=== PATIENT | female | born 1970 | race Caucasian/White ===

== ENCOUNTER 2016-12-11 08:00 | Outpatient (RCR) | payer OTHER ==
[~2016-12-11 08:00] MED LIST: ABILIFY5 MG PO; ACIPHEX PO; ACIPHEX20 MG PO; AMITRIPTYLINE10 MG PO; AMOXICILLIN 25250 MG PO; ATIVAN 1MG T1 MG/TAB PO; B-12 500 MCG PO; CIPRO 500MG TA500 MG PO; COMPAZINE10 MG PO; CYMBALTA30 MG PO; D H E IJ; DHE SC; INDERAL LA 60MG60 MG; INDOCIN 25MG CA25 MG PO; INDOCIN50 MG PO; KLONOPIN 1MG1 MG PO; LAMICTAL 25MG T25 MG PO; LAMICTAL200 MG PO; LEXAPRO10 MG PO; LEXAPRO20 MG PO; LYRICA75 MG PO; MELATONIN20 MG PO; MELATONIN5 M1 PO; MIGRANAL4 MG/ML SQ; NAMENDA5 MG PO; NAPROXEN250 MG PO; NEURONTIN100 MG PO; NEURONTIN300 MG PO; NEURONTIN300 MG/CAP PO; NORCO 325 MG-51 TAB PO; PERC2.5TAB PO; PERCOCET 325 MG1 TA2 PO; PHENERGAN 25 TA25 MG PO; PHENERGAN50 M1 PO; PHENTERMINE15 MG PO; PROPRANOLOL; PROPRANOLOL60 MG PO; PROTONIX 40MG T40 MG PO; PROTRIPTYLINE PO; ROBAXIN 50500 MG/TAB PO; SEROQUEL50 MG PO; SINGULAIR10 MG PO; TOPROL XL 25MG25 MG PO; TORADOL 10MG TA10 MG PO; ULTRAM ER200 MG PO; VALIUM 5MG T5 MG/TAB PO; VERAPAMIL 440 MG/TAB PO; VIT D PO; VITAMIN B12500 MCG PO; VITAMIN C500 MG PO; VITAMIN D1000 IU PO; Vitamin D PO; WELLBUTRIN 75MG75 MG PO; WELLBUTRIN XL150 MG PO; XANAX 0.5MG0.5 MG PO; ZANTAC 150MG T150 MG PO; ZANTAC 300300 MG PO; ZOFRAN 4MG T4 MG/TAB PO
== END 2016-12-21 | disposition home or self-care (01) ==
LOC: MKS.ESL.PT
DX: H83.8X2 Other specified diseases of left inner ear (principal)

== ENCOUNTER → 2016-12-22 | Outpatient (CLI) | payer OTHER ==
[~2016-12-22] MED LIST changes: +EFFEXOR 3737.5 MG/TA PO; +IMITREX50 MG PO
== END ==
LOC: BHSO 08:53
DX: F31.81 Bipolar II disorder (principal)

== ENCOUNTER 2017-01-15 08:00 | Outpatient (RCR) | payer OTHER ==
[~2017-01-15 08:00] MED LIST changes: -EFFEXOR 3737.5 MG/TA PO; -IMITREX50 MG PO
[2017-02-26] MEDS ORDERED: IMITREX50 MG PO (09:53)
[2017-02-26] MEDS ORDERED: EFFEXOR 3737.5 MG/TA PO (09:54)
== END 2017-03-20 10:21 | disposition home or self-care (01) ==
LOC: MKS.ESL.PT 08:00
DX: H83.8X2 Other specified diseases of left inner ear (principal)

== ENCOUNTER 2017-02-03 09:00 | Outpatient (RCR) | payer OTHER ==
[2016-11-11 08:51] VITALS: BP 144/77; PULSE 102; TEMP 98.4
[2016-11-14 09:22] VITALS: BP 114/78; PULSE 95; TEMP 98.5
[2016-11-17 09:57] VITALS: BP 114/38; PULSE 89
[2016-11-20 09:42] VITALS: BP 140/89; PULSE 88; TEMP 98.5
[2016-11-24 09:25] VITALS: BP 127/76; PULSE 94; TEMP 98
[2016-11-27 09:27] VITALS: BP 134/94; PULSE 101; TEMP 97.9
[2016-12-01 09:40] VITALS: BP 124/79; PULSE 95; TEMP 98.5
[2016-12-04 09:20] VITALS: BP 118/76; PULSE 93; TEMP 98.7
[2016-12-08 10:15] VITALS: BP 135/94; PULSE 108; TEMP 97.6
[2016-12-11 09:53] VITALS: BP 111/76; PULSE 98; TEMP 98.4
[2016-12-16 09:06] VITALS: BP 126/86; PULSE 102; TEMP 98.2
[2016-12-16 10:03] LABS: HEMATOCRIT 39.8 % (37.0-47.0); HEMOGLOBIN 12.6 g/dl (12.5-16.0); MEAN CELL VOLUME 88 fl (80.0-100.0); MEAN CORPUSCULAR HEMOGLOBIN 28 pg (27.0-31.0); MEAN CORPUSCULAR HGB CONC 32 g/dl (33.0-37.0); MEAN PLATELET VOLUME 9.8 fl (7.4-10.4); PLATELET COUNT 241 K/mm3 (130-400); RED BLOOD COUNT 4.55 M/mm3 (4.10-5.30); REDCELL DISTRIBUTION WIDTH-CV 14.4 % (11.5-14.5); WHITE BLOOD COUNT 11.8 K/mm3 (4.8-10.8)
[2016-12-16 10:09] LABS: ADJUSTED CALCIUM 9.2 mg/dL (8.4-10.2); ALBUMIN 3.9 gm/dL (3.5-5.0); BILIRUBIN,TOTAL 0.4 mg/dL (0.0-1.0); CALCIUM 9.1 mg/dL (8.4-10.2); CREATININE, serum 0.67 mg/dL (0.52-1.25); POTASSIUM 4.4 mmol/L (3.4-5.0); TOTAL PROTEIN 6.9 gm/dL (6.4-8.2)
[2016-12-19 08:20] VITALS: BP 119/81; PULSE 96; TEMP 97.1
[2016-12-22 09:45] VITALS: BP 130/92; PULSE 105; TEMP 98.4
[2016-12-26 14:35] VITALS: BP 125/91; PULSE 93; TEMP 97.9
[2016-12-29 10:35] VITALS: BP 125/77; PULSE 100; TEMP 98.2
[2017-01-01 10:55] VITALS: BP 122/96; PULSE 102; TEMP 98.2
[2017-01-05 10:45] VITALS: BP 102/62; PULSE 94; TEMP 98.1
[2017-01-08 10:06] VITALS: BP 129/82; PULSE 99; TEMP 98
[2017-01-12 09:08] VITALS: BP 124/87; PULSE 95; TEMP 98.4
[2017-01-12 09:58] LABS: BASO # 0.1 (0.0-0.2); BASO % 0.7 % (0.0-2.0); EOS # 0.2 (0.0-0.7); EOS % 1.7 % (0-4.0); GRAN # 9.3 (1.4-6.5); GRAN % 65.4 % (42.2-75.2); HEMATOCRIT 41.5 % (37.0-47.0); HEMOGLOBIN 13.5 g/dl (12.5-16.0); LYMPH # 3.9 (1.2-3.4); LYMPH % 27.6 % (20.0-51.0); MEAN CELL VOLUME 86 fl (80.0-100.0); MEAN CORPUSCULAR HEMOGLOBIN 28 pg (27.0-31.0); MEAN CORPUSCULAR HGB CONC 33 g/dl (33.0-37.0); MEAN PLATELET VOLUME 10.4 fl (7.4-10.4); MONO # 0.6 (0.1-0.6); MONO % 4.2 % (1.7-9.3); PLATELET COUNT 258 K/mm3 (130-400); RED BLOOD COUNT 4.81 M/mm3 (4.10-5.30); WHITE BLOOD COUNT 14.2 K/mm3 (4.8-10.8)
[2017-01-12 10:10] LABS: ADJUSTED CALCIUM 9.4 mg/dL (8.4-10.2); ALBUMIN 4.3 gm/dL (3.5-5.0); BILIRUBIN,TOTAL 0.6 mg/dL (0.0-1.0); CALCIUM 9.6 mg/dL (8.4-10.2); CREATININE, serum 0.73 mg/dL (0.52-1.25); POTASSIUM 4.3 mmol/L (3.4-5.0); TOTAL PROTEIN 7.8 gm/dL (6.4-8.2)
[2017-01-15 09:30] VITALS: BP 121/81; PULSE 102; TEMP 98.8
[2017-01-26 11:46] VITALS: BP 108/71; PULSE 84; TEMP 98.4
[2017-01-29 09:15] VITALS: BP 109/70; PULSE 99; TEMP 98.5
[~2017-02-03] VITALS: Ht 167.6 cm; Wt 102.0 kg
[2017-02-03 09:21] VITALS: BP 127/77; PULSE 99; TEMP 97.7
== END 2017-02-04 | disposition home or self-care (01) ==
LOC: EUO
PROVIDERS: Family Medicine
DX: G44.51 Hemicrania continua (principal); Z45.2 Encounter for adjustment and management of vascular access device
CPT/HCPCS: J1200; J1644; J1885; J2550; J3475; J7030; J7040

== ENCOUNTER → 2017-03-16 | Outpatient (CLI) | payer OTHER ==
[~2017-03-16] MED LIST changes: +EFFEXOR 3737.5 MG/TA PO; +IMITREX50 MG PO
== END ==
LOC: BHSO 08:56
DX: F31.74 Bipolar disorder, in full remission, most recent episode manic (principal)

== ENCOUNTER 2017-05-04 09:00 | Outpatient (RCR) | payer OTHER ==
[2017-02-06 09:20] VITALS: BP 120/77; PULSE 94; TEMP 98.5
[2017-02-09 10:25] VITALS: BP 126/78; PULSE 95; TEMP 98.7
[2017-02-09 10:27] LABS: HEMOGLOBIN 13.1 g/dl (12.5-16.0); MEAN CELL VOLUME 87 fl (80.0-100.0); MEAN CORPUSCULAR HEMOGLOBIN 28 pg (27.0-31.0); MEAN CORPUSCULAR HGB CONC 32 g/dl (33.0-37.0); PLATELET COUNT 281 K/mm3 (130-400); RED BLOOD COUNT 4.74 M/mm3 (4.10-5.30); REDCELL DISTRIBUTION WIDTH-CV 13.9 % (11.5-14.5); WHITE BLOOD COUNT 12.9 K/mm3 (4.8-10.8)
[2017-02-09 10:35] LABS: ADJUSTED CALCIUM 9.3 mg/dL (8.4-10.2); ALBUMIN 4.2 gm/dL (3.5-5.0); BILIRUBIN,TOTAL 0.6 mg/dL (0.0-1.0); CALCIUM 9.5 mg/dL (8.4-10.2); CREATININE, serum 0.64 mg/dL (0.52-1.25); POTASSIUM 4.1 mmol/L (3.4-5.0); TOTAL PROTEIN 7.3 gm/dL (6.4-8.2)
[2017-02-12 09:37] VITALS: BP 129/76; PULSE 98; TEMP 99.1
[2017-02-16 09:04] VITALS: BP 117/78; PULSE 101; TEMP 98.4
[2017-02-19 09:35] VITALS: BP 126/87; PULSE 95; TEMP 98.7
[2017-02-23 09:12] VITALS: BP 123/78; PULSE 94; TEMP 98.5
[2017-02-26 11:51] VITALS: BP 123/70; PULSE 97; TEMP 98.7
[2017-03-02 09:45] VITALS: BP 122/78; PULSE 92; TEMP 97.9
[2017-03-05 13:00] VITALS: BP 118/59; PULSE 94; TEMP 98.2
[2017-03-09 09:45] VITALS: BP 116/75; PULSE 95; TEMP 97.6
[2017-03-12 09:30] VITALS: BP 118/72; PULSE 106; TEMP 98.6
[2017-03-12 09:50] LABS: HEMATOCRIT 40.5 % (37.0-47.0); MEAN CELL VOLUME 86 fl (80.0-100.0); MEAN CORPUSCULAR HEMOGLOBIN 28 pg (27.0-31.0); MEAN CORPUSCULAR HGB CONC 32 g/dl (33.0-37.0); MEAN PLATELET VOLUME 10.4 fl (7.4-10.4); PLATELET COUNT 270 K/mm3 (130-400); RED BLOOD COUNT 4.71 M/mm3 (4.10-5.30); REDCELL DISTRIBUTION WIDTH-CV 14.1 % (11.5-14.5); WHITE BLOOD COUNT 10.1 K/mm3 (4.8-10.8)
[2017-03-12 10:16] LABS: ADJUSTED CALCIUM 9.4 mg/dL (8.4-10.2); BILIRUBIN,TOTAL 0.6 mg/dL (0.0-1.0); CALCIUM 9.4 mg/dL (8.4-10.2); CREATININE, serum 0.73 mg/dL (0.52-1.25); POTASSIUM 4.1 mmol/L (3.4-5.0); TOTAL PROTEIN 7.1 gm/dL (6.4-8.2)
[2017-03-16 11:01] VITALS: BP 139/86; PULSE 101; TEMP 98.7
[2017-03-19 09:25] VITALS: BP 118/82; PULSE 91; TEMP 98.5
[2017-03-23 07:30] VITALS: BP 129/75; PULSE 88; TEMP 98.1
[2017-03-26 12:04] VITALS: BP 99/61; PULSE 90; TEMP 98.1
[2017-03-30 09:14] VITALS: BP 147/84; PULSE 90; TEMP 97.7
[2017-04-02 09:20] VITALS: BP 125/94; PULSE 92; TEMP 99.2
[2017-04-07 10:35] VITALS: BP 108/55; PULSE 63; TEMP 97.9
[2017-04-10 09:38] VITALS: BP 127/79; PULSE 82; TEMP 98
[2017-04-13 09:03] VITALS: BP 135/77; PULSE 82; TEMP 97.9
[2017-04-13 09:56] LABS: HEMATOCRIT 38.7 % (37.0-47.0); HEMOGLOBIN 12.3 g/dl (12.5-16.0); MEAN CELL VOLUME 87 fl (80.0-100.0); MEAN CORPUSCULAR HEMOGLOBIN 28 pg (27.0-31.0); MEAN CORPUSCULAR HGB CONC 32 g/dl (33.0-37.0); MEAN PLATELET VOLUME 10.4 fl (7.4-10.4); PLATELET COUNT 257 K/mm3 (130-400); RED BLOOD COUNT 4.44 M/mm3 (4.10-5.30); REDCELL DISTRIBUTION WIDTH-CV 14.6 % (11.5-14.5); WHITE BLOOD COUNT 9.1 K/mm3 (4.8-10.8)
[2017-04-13 10:05] LABS: ADJUSTED CALCIUM 8.9 mg/dL (8.4-10.2); ALBUMIN 3.9 gm/dL (3.5-5.0); BILIRUBIN,TOTAL 0.6 mg/dL (0.0-1.0); CALCIUM 8.8 mg/dL (8.4-10.2); CREATININE, serum 0.64 mg/dL (0.52-1.25); POTASSIUM 4.3 mmol/L (3.4-5.0); TOTAL PROTEIN 6.9 gm/dL (6.4-8.2)
[2017-04-16 09:16] VITALS: BP 112/72; PULSE 84; TEMP 98.3
[2017-04-21 14:17] VITALS: BP 131/82; PULSE 92; TEMP 98.5
[2017-04-24 10:04] VITALS: BP 105/69; PULSE 84; TEMP 98.2
[2017-04-27 09:40] VITALS: BP 110/64; PULSE 92; TEMP 98.8
[2017-04-30 10:45] VITALS: BP 111/69; PULSE 99; TEMP 98.9
[~2017-05-04] VITALS: Ht 167.6 cm; Wt 100.0 kg
[2017-05-04 09:58] VITALS: BP 128/77; PULSE 96; TEMP 98.8
== END 2017-05-07 | disposition still patient (30) ==
LOC: EUO
PROVIDERS: Family Medicine
DX: G44.51 Hemicrania continua (principal)
CPT/HCPCS: J1200; J1644; J1885; J2550; J3475; J7040

== ENCOUNTER → 2017-06-22 | Outpatient (CLI) | payer OTHER | LOC: BHSO 09:06 | DX: F31.73 Bipolar disorder, in partial remission, most recent episode manic (principal) ==

== ENCOUNTER 2017-08-14 09:00 | Outpatient (RCR) | payer OTHER ==
[2017-05-18 11:00] VITALS: BP 122/68; PULSE 81
[2017-05-18 14:16] LABS: MEAN CELL VOLUME 85 fl (80.0-100.0); MEAN CORPUSCULAR HGB CONC 32 g/dl (33.0-37.0); PLATELET COUNT 258 K/mm3 (130-400); RED BLOOD COUNT 4.32 M/mm3 (4.10-5.30); REDCELL DISTRIBUTION WIDTH-CV 13.9 % (11.5-14.5)
[2017-05-18 14:18] LABS: HEMATOCRIT 36.9 % (37.0-47.0); HEMOGLOBIN 11.8 g/dl (12.5-16.0); MEAN CORPUSCULAR HEMOGLOBIN 27 pg (27.0-31.0)
[2017-05-18 14:26] LABS: ALBUMIN 3.6 gm/dL (3.5-5.0); BILIRUBIN,TOTAL 0.5 mg/dL (0.0-1.0); CALCIUM 8.7 mg/dL (8.4-10.2); CREATININE, serum 0.69 mg/dL (0.52-1.25); POTASSIUM 4.2 mmol/L (3.4-5.0); TOTAL PROTEIN 6.5 gm/dL (6.4-8.2)
[2017-05-21 09:39] VITALS: BP 122/79; PULSE 93; TEMP 98.5
[2017-05-28 10:00] VITALS: BP 113/78; PULSE 95; TEMP 98.3
[2017-06-01 09:45] VITALS: BP 119/73; PULSE 93; TEMP 98.5
[2017-06-04 09:39] VITALS: BP 123/83; PULSE 88; TEMP 98.3
[2017-06-08 09:53] VITALS: BP 100/77; PULSE 84
[2017-06-11 09:43] VITALS: BP 113/83; PULSE 85; TEMP 98.3
[2017-06-11 12:07] LABS: MEAN CELL VOLUME 86 fl (80.0-100.0); MEAN CORPUSCULAR HGB CONC 32 g/dl (33.0-37.0); MEAN PLATELET VOLUME 10.1 fl (7.4-10.4); PLATELET COUNT 281 K/mm3 (130-400); RED BLOOD COUNT 4.07 M/mm3 (4.10-5.30); REDCELL DISTRIBUTION WIDTH-CV 13.9 % (11.5-14.5); WHITE BLOOD COUNT 9.2 K/mm3 (4.8-10.8)
[2017-06-11 12:10] LABS: HEMATOCRIT 34.9 % (37.0-47.0); MEAN CORPUSCULAR HEMOGLOBIN 27 pg (27.0-31.0)
[2017-06-11 12:15] LABS: ADJUSTED CALCIUM 9.5 mg/dL (8.4-10.2); ALBUMIN 3.6 gm/dL (3.5-5.0); BILIRUBIN,TOTAL 0.4 mg/dL (0.0-1.0); CALCIUM 9.2 mg/dL (8.4-10.2); CREATININE, serum 0.77 mg/dL (0.52-1.25); POTASSIUM 4.4 mmol/L (3.4-5.0); TOTAL PROTEIN 6.4 gm/dL (6.4-8.2)
[2017-06-18 09:26] VITALS: BP 128/86; PULSE 97; TEMP 98.3
[2017-06-22 10:53] VITALS: BP 104/75; PULSE 88; TEMP 98.3
[2017-06-25 09:30] VITALS: BP 113/79; PULSE 93; TEMP 98.8
[2017-06-29 09:30] VITALS: BP 120/67; PULSE 93; TEMP 97
[2017-07-01 14:06] VITALS: BP 113/69; PULSE 100; TEMP 98.7
[2017-07-06 09:30] VITALS: BP 114/76; PULSE 94; TEMP 98.7
[2017-07-09 09:15] VITALS: BP 116/82; PULSE 106; TEMP 98.3
[2017-07-14 09:49] VITALS: BP 110/75; PULSE 91; TEMP 98.2
[2017-07-17 09:20] VITALS: BP 107/68; PULSE 110; TEMP 98.3
[2017-07-17 11:30] LABS: HEMATOCRIT 37.8 % (37.0-47.0); HEMOGLOBIN 12.3 g/dl (12.5-16.0); MEAN CELL VOLUME 83 fl (80.0-100.0); MEAN CORPUSCULAR HEMOGLOBIN 27 pg (27.0-31.0); MEAN CORPUSCULAR HGB CONC 33 g/dl (33.0-37.0); MEAN PLATELET VOLUME 10.2 fl (7.4-10.4); PLATELET COUNT 245 K/mm3 (130-400); RED BLOOD COUNT 4.53 M/mm3 (4.10-5.30); REDCELL DISTRIBUTION WIDTH-CV 14.4 % (11.5-14.5); WHITE BLOOD COUNT 11.8 K/mm3 (4.8-10.8)
[2017-07-17 11:43] LABS: ADJUSTED CALCIUM 9.1 mg/dL (8.4-10.2); ALBUMIN 3.9 gm/dL (3.5-5.0); BILIRUBIN,TOTAL 0.5 mg/dL (0.0-1.0); CREATININE, serum 0.59 mg/dL (0.52-1.25); POTASSIUM 4.5 mmol/L (3.4-5.0); TOTAL PROTEIN 7.1 gm/dL (6.4-8.2)
[2017-07-20 12:50] VITALS: BP 121/73; PULSE 88; TEMP 97.6
[2017-07-23 09:30] VITALS: BP 133/76; PULSE 101; TEMP 98.8
[2017-07-27 09:30] VITALS: BP 113/77; PULSE 100; TEMP 99.6
[2017-07-30 14:49] VITALS: BP 97/71; PULSE 92; TEMP 98.4
[2017-08-03 09:15] VITALS: BP 101/64; PULSE 90; TEMP 98.2
[2017-08-06 10:11] VITALS: BP 112/72; PULSE 94; TEMP 98.1
[2017-08-11 09:24] LABS: BASO # 0.1 (0.0-0.2); BASO % 0.6 % (0.0-2.0); EOS # 0.2 (0.0-0.7); EOS % 1.7 % (0-4.0); GRAN # 9.4 (1.4-6.5); GRAN % 68.7 % (42.2-75.2); HEMATOCRIT 38.8 % (37.0-47.0); HEMOGLOBIN 12.2 g/dl (12.5-16.0); LYMPH # 3.3 (1.2-3.4); LYMPH % 23.7 % (20.0-51.0); MEAN CELL VOLUME 86 fl (80.0-100.0); MEAN CORPUSCULAR HEMOGLOBIN 27 pg (27.0-31.0); MEAN CORPUSCULAR HGB CONC 31 g/dl (33.0-37.0); MEAN PLATELET VOLUME 9.8 fl (7.4-10.4); MONO # 0.7 (0.1-0.6); MONO % 4.9 % (1.7-9.3); PLATELET COUNT 251 K/mm3 (130-400); REDCELL DISTRIBUTION WIDTH-CV 14.9 % (11.5-14.5); WHITE BLOOD COUNT 13.7 K/mm3 (4.8-10.8)
[2017-08-11 09:35] LABS: ADJUSTED CALCIUM 9.4 mg/dL (8.4-10.2); BILIRUBIN,TOTAL 0.5 mg/dL (0.0-1.0); CALCIUM 9.4 mg/dL (8.4-10.2); CREATININE, serum 0.58 mg/dL (0.52-1.25); POTASSIUM 4.3 mmol/L (3.4-5.0); TOTAL PROTEIN 7.3 gm/dL (6.4-8.2)
[2017-08-11 09:54] VITALS: BP 108/70; PULSE 103; TEMP 98.4
[~2017-08-14] VITALS: Ht 167.6 cm; Wt 105.8 kg
[2017-08-14 10:18] VITALS: BP 119/79; PULSE 98; TEMP 98.4
== END 2017-08-16 ==
LOC: EUO
PROVIDERS: Family Medicine
DX: G44.51 Hemicrania continua (principal); G43.009 Migraine without aura, not intractable, without status migrainosus; Z79.899 Other long term (current) drug therapy
CPT/HCPCS: J1200; J1644; J1885; J2550; J3475; J7040

== ENCOUNTER 2017-09-02 10:34 | Day surgery (SDC) | payer OTHER ==
[~2017-09-02] VITALS: Ht 167.7 cm; Wt 101.7 kg
[2017-09-02] VITALS (11 sets, daily range): BP systolic 100–113; BP diastolic 58–80; PULSE 98–107; TEMP 97.9–98.1
[2017-09-02 11:14] LABS: BASO # 0.1 (0.0-0.2); BASO % 0.7 % (0.0-2.0); EOS # 0.2 (0.0-0.7); EOS % 1.4 % (0-4.0); GRAN # 9.3 (1.4-6.5); GRAN % 69.6 % (42.2-75.2); HEMATOCRIT 37.4 % (37.0-47.0); LYMPH % 22.7 % (20.0-51.0); MEAN CELL VOLUME 85 fl (80.0-100.0); MEAN CORPUSCULAR HEMOGLOBIN 27 pg (27.0-31.0); MEAN CORPUSCULAR HGB CONC 31 g/dl (33.0-37.0); MEAN PLATELET VOLUME 10.1 fl (7.4-10.4); MONO # 0.6 (0.1-0.6); MONO % 4.6 % (1.7-9.3); PLATELET COUNT 258 K/mm3 (130-400); WHITE BLOOD COUNT 13.4 K/mm3 (4.8-10.8)
[2017-09-02 11:24] LABS: HEMOGLOBIN 11.7 g/dl (12.5-16.0)
[2017-09-02 11:24] LABS: INR 1.2 (0.8-3.0); PROTHROMBIN TIME 12.8 SECONDS (9.7-12.8)
== END 2017-09-02 17:21 | disposition home or self-care (01) ==
LOC: COL.CAR 10:34
PROVIDERS: Radiology Diagnostic Radiology
DX: T82.9XXA Unspecified complication of cardiac and vascular prosthetic device, implant and graft, initial encounter (principal)
CPT/HCPCS: C1769; J0690; J1644; J2250; J3010; J7050

== ENCOUNTER → 2017-10-05 | Outpatient (CLI) | payer OTHER | LOC: MC.RAD 11:16 | DX: Z12.31 Encounter for screening mammogram for malignant neoplasm of breast (principal); Z96.89 Presence of other specified functional implants ==

== ENCOUNTER → 2017-10-08 | Outpatient (CLI) | payer OTHER | LOC: BHSO 09:20 | DX: F41.1 Generalized anxiety disorder (principal) ==

== ENCOUNTER 2017-11-06 09:00 | Outpatient (RCR) | payer OTHER ==
[2017-08-17 10:52] VITALS: BP 93/63; PULSE 82; TEMP 98.2
[2017-08-24 09:15] VITALS: BP 134/75; PULSE 86; TEMP 98.1
[2017-08-27 09:52] VITALS: BP 112/78; PULSE 91; TEMP 98.5
[2017-08-31 08:48] VITALS: BP 142/83; PULSE 107; TEMP 97.7
[2017-09-07 10:14] VITALS: BP 100/65; PULSE 87; TEMP 97.6
[2017-09-10 11:09] VITALS: PULSE 89; TEMP 98.6
[2017-09-10 11:34] LABS: ALBUMIN 4.2 gm/dL (3.5-5.0); BILIRUBIN,TOTAL 0.5 mg/dL (0.0-1.0); CALCIUM 9.9 mg/dL (8.4-10.2); CREATININE, serum 0.74 mg/dL (0.52-1.25); POTASSIUM 4.5 mmol/L (3.4-5.0); TOTAL PROTEIN 7.7 gm/dL (6.4-8.2)
[2017-09-14 12:15] VITALS: BP 112/75; PULSE 97; TEMP 98.5
[2017-09-17 09:33] VITALS: BP 113/90; PULSE 92; TEMP 98.9
[2017-09-21 09:15] VITALS: BP 116/89; PULSE 100; TEMP 98.4
[2017-09-24 11:09] VITALS: BP 124/77; PULSE 94; TEMP 98.1
[2017-09-28 09:30] VITALS: BP 119/76; PULSE 101; TEMP 98.5
[2017-10-02 13:23] VITALS: BP 119/72; PULSE 108; TEMP 99.5
[2017-10-05 10:03] VITALS: BP 119/71; PULSE 102; TEMP 98.9
[2017-10-08 10:58] VITALS: BP 126/90; PULSE 114; TEMP 98.3
[2017-10-12 09:40] VITALS: BP 116/73; PULSE 92; TEMP 98.8
[2017-10-12 09:51] LABS: MEAN CELL VOLUME 84 fl (80.0-100.0); MEAN CORPUSCULAR HEMOGLOBIN 26 pg (27.0-31.0); MEAN CORPUSCULAR HGB CONC 31 g/dl (33.0-37.0); MEAN PLATELET VOLUME 10.3 fl (7.4-10.4); PLATELET COUNT 272 K/mm3 (130-400); RED BLOOD COUNT 4.54 M/mm3 (4.10-5.30); REDCELL DISTRIBUTION WIDTH-CV 14.6 % (11.5-14.5)
[2017-10-12 09:53] LABS: HEMOGLOBIN 11.9 g/dl (12.5-16.0)
[2017-10-12 10:09] LABS: ALBUMIN 4.1 gm/dL (3.5-5.0); BILIRUBIN,TOTAL 0.4 mg/dL (0.0-1.0); CALCIUM 9.6 mg/dL (8.4-10.2); CREATININE, serum 0.66 mg/dL (0.52-1.25); POTASSIUM 4.1 mmol/L (3.4-5.0); TOTAL PROTEIN 7.2 gm/dL (6.4-8.2)
[2017-10-19 09:10] VITALS: BP 136/93; PULSE 95; TEMP 98
[2017-10-26 09:00] VITALS: BP 131/80; PULSE 95; TEMP 98
[2017-10-29 10:39] VITALS: BP 126/85; PULSE 87; TEMP 98
[2017-11-03 10:07] VITALS: BP 114/83; PULSE 103; TEMP 98.6
[~2017-11-06] VITALS: Ht 167.6 cm; Wt 103.6 kg
[2017-11-06 10:29] VITALS: BP 127/90; PULSE 95; TEMP 98.4
[2017-11-10] MEDS ORDERED: ULTRAM 50MG TAB50 MG PO (09:10)
== END 2017-11-06 11:26 | disposition home or self-care (01) ==
LOC: EUO 09:00
PROVIDERS: Family Medicine
DX: Z45.2 Encounter for adjustment and management of vascular access device (principal); G44.51 Hemicrania continua; Z95.9 Presence of cardiac and vascular implant and graft, unspecified; Z96.9 Presence of functional implant, unspecified
CPT/HCPCS: J1200; J1644; J2550; J3475; J7040; Q9967

== ENCOUNTER → 2017-12-07 | Outpatient (CLI) | payer OTHER ==
[~2017-12-07] MED LIST changes: +ULTRAM 50MG TAB50 MG PO
== END ==
LOC: BHSO 09:47
DX: F41.1 Generalized anxiety disorder (principal)
CPT/HCPCS: G0463

== ENCOUNTER 2018-02-05 14:00 | Outpatient (RCR) | payer OTHER ==
[2017-11-10 09:35] VITALS: BP 117/56; PULSE 66; TEMP 97.8
[2017-11-10 09:37] LABS: MEAN CELL VOLUME 84 fl (80.0-100.0); MEAN CORPUSCULAR HGB CONC 31 g/dl (33.0-37.0); MEAN PLATELET VOLUME 10.2 fl (7.4-10.4); PLATELET COUNT 262 K/mm3 (130-400); RED BLOOD COUNT 4.39 M/mm3 (4.10-5.30)
[2017-11-10 09:41] LABS: HEMATOCRIT 36.8 % (37.0-47.0); HEMOGLOBIN 11.5 g/dl (12.5-16.0); MEAN CORPUSCULAR HEMOGLOBIN 26 pg (27.0-31.0)
[2017-11-10 09:47] LABS: ALBUMIN 4.2 gm/dL (3.5-5.0); BILIRUBIN,TOTAL 0.4 mg/dL (0.0-1.0); CALCIUM 9.2 mg/dL (8.4-10.2); CREATININE, serum 0.73 mg/dL (0.52-1.25); POTASSIUM 3.8 mmol/L (3.4-5.0); TOTAL PROTEIN 7.3 gm/dL (6.4-8.2)
[2017-11-12 09:15] VITALS: BP 124/73; PULSE 94; TEMP 98.8
[2017-11-16 09:24] VITALS: BP 131/82; PULSE 93; TEMP 98.1
[2017-11-20 12:50] VITALS: BP 115/79; PULSE 98; TEMP 98.6
[2017-11-24 09:15] VITALS: BP 111/86; PULSE 98; TEMP 98.3
[2017-11-26 08:40] VITALS: BP 119/75; PULSE 95; TEMP 98.2
[2017-11-30 09:27] VITALS: BP 119/89; PULSE 97; TEMP 98.5
[2017-12-03 10:06] VITALS: BP 122/71; PULSE 92; TEMP 98.5
[2017-12-07 13:37] VITALS: BP 116/73; PULSE 96; TEMP 99.1
[2017-12-10 09:25] LABS: HEMATOCRIT 39.7 % (37.0-47.0); HEMOGLOBIN 12.3 g/dl (12.5-16.0); MEAN CELL VOLUME 83 fl (80.0-100.0); MEAN CORPUSCULAR HEMOGLOBIN 26 pg (27.0-31.0); MEAN CORPUSCULAR HGB CONC 31 g/dl (33.0-37.0); PLATELET COUNT 285 K/mm3 (130-400); RED BLOOD COUNT 4.77 M/mm3 (4.10-5.30); REDCELL DISTRIBUTION WIDTH-CV 15.1 % (11.5-14.5)
[2017-12-10 09:29] LABS: ALBUMIN 4.3 gm/dL (3.5-5.0); BILIRUBIN,TOTAL 0.3 mg/dL (0.0-1.0); CALCIUM 9.8 mg/dL (8.4-10.2); CREATININE, serum 0.68 mg/dL (0.52-1.25); POTASSIUM 4.3 mmol/L (3.4-5.0); TOTAL PROTEIN 7.4 gm/dL (6.4-8.2)
[2017-12-10 09:35] VITALS: BP 137/84; PULSE 93; TEMP 97.8
[2017-12-14 09:40] VITALS: BP 115/82; PULSE 100; TEMP 98
[2017-12-17 10:03] VITALS: BP 105/77; PULSE 86; TEMP 97.9
[2017-12-21 09:10] VITALS: BP 114/83; PULSE 89; TEMP 97.8
[2017-12-24 09:12] VITALS: BP 125/84; PULSE 100; TEMP 98.1
[2017-12-24 09:40] LABS: HEMATOCRIT 39.6 % (37.0-47.0); HEMOGLOBIN 12.4 g/dl (12.5-16.0); MEAN CELL VOLUME 82 fl (80.0-100.0); MEAN CORPUSCULAR HEMOGLOBIN 26 pg (27.0-31.0); MEAN CORPUSCULAR HGB CONC 31 g/dl (33.0-37.0); PLATELET COUNT 245 K/mm3 (130-400); RED BLOOD COUNT 4.82 M/mm3 (4.10-5.30); REDCELL DISTRIBUTION WIDTH-CV 15.3 % (11.5-14.5)
[2017-12-24 09:51] LABS: ALBUMIN 4.4 gm/dL (3.5-5.0); BILIRUBIN,TOTAL 0.4 mg/dL (0.0-1.0); CALCIUM 9.7 mg/dL (8.4-10.2); CREATININE, serum 0.61 mg/dL (0.52-1.25); POTASSIUM 4.2 mmol/L (3.4-5.0); TOTAL PROTEIN 7.6 gm/dL (6.4-8.2)
[2017-12-28 09:00] VITALS: BP 126/81; PULSE 88; TEMP 98
[2018-01-04 10:45] VITALS: BP 119/72; PULSE 88; TEMP 98.3
[2018-01-07 09:36] VITALS: BP 110/68; PULSE 84; TEMP 98
[2018-01-07 11:15] LABS: MEAN CELL VOLUME 82 fl (80.0-100.0); MEAN CORPUSCULAR HGB CONC 31 g/dl (33.0-37.0); PLATELET COUNT 267 K/mm3 (130-400); RED BLOOD COUNT 4.47 M/mm3 (4.10-5.30); REDCELL DISTRIBUTION WIDTH-CV 15.1 % (11.5-14.5)
[2018-01-07 11:18] LABS: HEMATOCRIT 36.6 % (37.0-47.0); HEMOGLOBIN 11.5 g/dl (12.5-16.0); MEAN CORPUSCULAR HEMOGLOBIN 26 pg (27.0-31.0)
[2018-01-07 11:25] LABS: ALBUMIN 3.8 gm/dL (3.5-5.0); BILIRUBIN,TOTAL 0.3 mg/dL (0.0-1.0); CALCIUM 8.5 mg/dL (8.4-10.2); CREATININE, serum 0.64 mg/dL (0.52-1.25); TOTAL PROTEIN 6.7 gm/dL (6.4-8.2)
[2018-01-11 09:32] VITALS: BP 110/70; PULSE 77; TEMP 98.4
[2018-01-14 08:55] VITALS: BP 135/82; PULSE 100; TEMP 98.6
[2018-01-18 08:39] VITALS: BP 118/85; PULSE 102; TEMP 99
[2018-01-21 08:28] LABS: HEMATOCRIT 38.3 % (37.0-47.0); MEAN CELL VOLUME 82 fl (80.0-100.0); MEAN CORPUSCULAR HEMOGLOBIN 26 pg (27.0-31.0); MEAN CORPUSCULAR HGB CONC 31 g/dl (33.0-37.0); MEAN PLATELET VOLUME 10.2 fl (7.4-10.4); PLATELET COUNT 233 K/mm3 (130-400); RED BLOOD COUNT 4.68 M/mm3 (4.10-5.30); REDCELL DISTRIBUTION WIDTH-CV 15.6 % (11.5-14.5)
[2018-01-21 08:41] LABS: ALBUMIN 4.1 gm/dL (3.5-5.0); BILIRUBIN,TOTAL 0.3 mg/dL (0.0-1.0); CALCIUM 9.1 mg/dL (8.4-10.2); CREATININE, serum 0.62 mg/dL (0.52-1.25); POTASSIUM 4.1 mmol/L (3.4-5.0); TOTAL PROTEIN 7.2 gm/dL (6.4-8.2)
[2018-01-21 08:52] VITALS: BP 99/74; PULSE 95; TEMP 98.5
[2018-01-25 08:45] VITALS: BP 110/74; PULSE 105; TEMP 98.2
[2018-01-28 13:50] VITALS: BP 125/74; PULSE 101; TEMP 98.9
[2018-02-02 09:53] VITALS: BP 114/79; PULSE 93; TEMP 98
[~2018-02-05] VITALS: Ht 167.6 cm; Wt 95.5 kg
[2018-02-05 14:00] VITALS: BP 120/80; PULSE 96; TEMP 98
[2018-02-05 15:37] LABS: ALBUMIN 3.8 gm/dL (3.5-5.0); BILIRUBIN,TOTAL 0.4 mg/dL (0.0-1.0); CALCIUM 9.2 mg/dL (8.4-10.2); CREATININE, serum 0.67 mg/dL (0.52-1.25); POTASSIUM 4.1 mmol/L (3.4-5.0); TOTAL PROTEIN 7.2 gm/dL (6.4-8.2)
[2018-02-05 17:43] LABS: HEMATOCRIT 38.5 % (37.0-47.0); MEAN CELL VOLUME 82 fl (80.0-100.0); MEAN CORPUSCULAR HEMOGLOBIN 25 pg (27.0-31.0); MEAN CORPUSCULAR HGB CONC 31 g/dl (33.0-37.0); MEAN PLATELET VOLUME 10.9 fl (7.4-10.4); PLATELET COUNT 285 K/mm3 (130-400); RED BLOOD COUNT 4.71 M/mm3 (4.10-5.30); REDCELL DISTRIBUTION WIDTH-CV 15.1 % (11.5-14.5)
[2018-02-05 17:46] LABS: HEMOGLOBIN 11.8 g/dl (12.5-16.0)
== END 2018-02-08 ==
LOC: EUO
PROVIDERS: Family Medicine
DX: G44.51 Hemicrania continua (principal); Z79.899 Other long term (current) drug therapy
CPT/HCPCS: J1200; J1644; J2550; J3475; J7040

== ENCOUNTER 2018-02-26 09:00 | Outpatient (RCR) | payer OTHER ==
[2018-03-11] MEDS ORDERED: ADVIL200 MG PO (09:30)
[2018-03-28] MEDS ORDERED: ZOFRAN 4MG T4 MG/TAB PO (11:23)
[2018-03-28] MEDS ORDERED: CEPHALEXIN500 M1 PO (11:35)
== END 2018-04-26 | disposition home or self-care (01) ==
LOC: MKS.ESL.PT
DX: S93.401D Sprain of unspecified ligament of right ankle, subsequent encounter (principal)

== ENCOUNTER → 2018-03-01 | Outpatient (CLI) | payer OTHER | LOC: BHSO 08:01 | DX: F31.81 Bipolar II disorder (principal) | CPT/HCPCS: G0463 ==

== ENCOUNTER → 2018-05-10 | Outpatient (CLI) | payer OTHER ==
[~2018-05-10] MED LIST changes: +ADVIL200 MG PO; +CEPHALEXIN500 M1 PO
== END ==
LOC: BHSO 07:56
DX: F31.81 Bipolar II disorder (principal)
CPT/HCPCS: G0463

== ENCOUNTER → 2018-05-10 | Outpatient (RCR) | payer OTHER ==
[2018-02-09 09:45] VITALS: BP 114/76; PULSE 94; TEMP 98.4
[2018-02-12 13:25] VITALS: BP 124/80; PULSE 94; TEMP 98.2
[2018-02-16 09:32] VITALS: BP 132/88; PULSE 103; TEMP 98.8
[2018-02-23 12:30] VITALS: BP 111/79; PULSE 88; TEMP 98.6
[2018-02-23 12:47] LABS: HEMATOCRIT 37.3 % (37.0-47.0); MEAN CELL VOLUME 83 fl (80.0-100.0); MEAN CORPUSCULAR HEMOGLOBIN 26 pg (27.0-31.0); MEAN CORPUSCULAR HGB CONC 31 g/dl (33.0-37.0); PLATELET COUNT 241 K/mm3 (130-400); RED BLOOD COUNT 4.49 M/mm3 (4.10-5.30); REDCELL DISTRIBUTION WIDTH-CV 15.8 % (11.5-14.5)
[2018-02-23 12:51] LABS: HEMOGLOBIN 11.5 g/dl (12.5-16.0)
[2018-02-23 12:56] LABS: ALBUMIN 3.7 gm/dL (3.5-5.0); BILIRUBIN,TOTAL 0.4 mg/dL (0.0-1.0); CALCIUM 8.7 mg/dL (8.4-10.2); CREATININE, serum 0.53 mg/dL (0.52-1.25); POTASSIUM 3.9 mmol/L (3.4-5.0); TOTAL PROTEIN 7.2 gm/dL (6.4-8.2)
[2018-02-26 11:35] VITALS: BP 131/76; PULSE 95; TEMP 97.5
[2018-03-04 09:23] VITALS: BP 121/72; PULSE 94; TEMP 98.3
[2018-03-08 09:37] VITALS: BP 116/69; PULSE 96; TEMP 98.9
[2018-03-11 09:15] VITALS: BP 118/76; PULSE 98; TEMP 98.4
[2018-03-11 09:39] LABS: HEMOGLOBIN 11.9 g/dl (12.5-16.0); MEAN CELL VOLUME 81 fl (80.0-100.0); MEAN CORPUSCULAR HEMOGLOBIN 25 pg (27.0-31.0); MEAN CORPUSCULAR HGB CONC 31 g/dl (33.0-37.0); MEAN PLATELET VOLUME 10.1 fl (7.4-10.4); PLATELET COUNT 245 K/mm3 (130-400); RED BLOOD COUNT 4.68 M/mm3 (4.10-5.30); REDCELL DISTRIBUTION WIDTH-CV 15.6 % (11.5-14.5)
[2018-03-11 09:51] LABS: ALBUMIN 3.8 gm/dL (3.5-5.0); BILIRUBIN,TOTAL 0.5 mg/dL (0.0-1.0); CALCIUM 8.8 mg/dL (8.4-10.2); CREATININE, serum 0.69 mg/dL (0.52-1.25); TOTAL PROTEIN 7.4 gm/dL (6.4-8.2)
[2018-03-15 08:39] VITALS: BP 119/76; PULSE 95; TEMP 99.3
[2018-03-18 09:21] VITALS: BP 117/81; PULSE 105; TEMP 98.7
[2018-03-22 09:21] VITALS: BP 116/76; PULSE 99; TEMP 98.3
[2018-03-25 09:30] LABS: HEMATOCRIT 38.7 % (37.0-47.0); HEMOGLOBIN 12.1 g/dl (12.5-16.0); MEAN CELL VOLUME 81 fl (80.0-100.0); MEAN CORPUSCULAR HEMOGLOBIN 25 pg (27.0-31.0); MEAN CORPUSCULAR HGB CONC 31 g/dl (33.0-37.0); MEAN PLATELET VOLUME 10.5 fl (7.4-10.4); PLATELET COUNT 264 K/mm3 (130-400); RED BLOOD COUNT 4.78 M/mm3 (4.10-5.30); REDCELL DISTRIBUTION WIDTH-CV 15.8 % (11.5-14.5)
[2018-03-25 09:37] VITALS: BP 107/83; PULSE 90; TEMP 97.7
[2018-03-25 09:40] LABS: ALBUMIN 4.1 gm/dL (3.5-5.0); BILIRUBIN,TOTAL 0.5 mg/dL (0.0-1.0); CALCIUM 9.4 mg/dL (8.4-10.2); CREATININE, serum 0.69 mg/dL (0.52-1.25); POTASSIUM 4.7 mmol/L (3.4-5.0); TOTAL PROTEIN 8.1 gm/dL (6.4-8.2)
[2018-03-29 09:42] VITALS: BP 111/72; PULSE 88; TEMP 98.4
[2018-04-01 09:47] VITALS: BP 115/80; PULSE 89; TEMP 97.9
[2018-04-06 09:10] VITALS: BP 107/70; PULSE 88; TEMP 99.3
[2018-04-06 09:26] LABS: MEAN CELL VOLUME 80 fl (80.0-100.0); MEAN CORPUSCULAR HEMOGLOBIN 25 pg (27.0-31.0); MEAN CORPUSCULAR HGB CONC 32 g/dl (33.0-37.0); MEAN PLATELET VOLUME 10.1 fl (7.4-10.4); PLATELET COUNT 278 K/mm3 (130-400); RED BLOOD COUNT 4.75 M/mm3 (4.10-5.30); REDCELL DISTRIBUTION WIDTH-CV 15.3 % (11.5-14.5)
[2018-04-06 09:44] LABS: ALBUMIN 3.9 gm/dL (3.5-5.0); BILIRUBIN,TOTAL 0.6 mg/dL (0.0-1.0); CALCIUM 9.6 mg/dL (8.4-10.2); CREATININE, serum 0.62 mg/dL (0.52-1.25); POTASSIUM 4.3 mmol/L (3.4-5.0); TOTAL PROTEIN 7.8 gm/dL (6.4-8.2)
[2018-04-09 14:31] VITALS: BP 110/74; PULSE 83; TEMP 98
[2018-04-12 09:00] VITALS: BP 120/78; PULSE 66; TEMP 98
[2018-04-15 09:32] VITALS: BP 107/66; PULSE 87; TEMP 98.1
[2018-04-19 08:46] VITALS: BP 120/74; PULSE 90; TEMP 98.3
[2018-04-19 10:00] LABS: HEMOGLOBIN 10.6 g/dl (12.5-16.0); MEAN CELL VOLUME 80 fl (80.0-100.0); MEAN CORPUSCULAR HEMOGLOBIN 25 pg (27.0-31.0); MEAN CORPUSCULAR HGB CONC 31 g/dl (33.0-37.0); MEAN PLATELET VOLUME 10.5 fl (7.4-10.4); PLATELET COUNT 303 K/mm3 (130-400); RED BLOOD COUNT 4.25 M/mm3 (4.10-5.30); REDCELL DISTRIBUTION WIDTH-CV 15.3 % (11.5-14.5)
[2018-04-19 10:10] LABS: ALBUMIN 3.7 gm/dL (3.5-5.0); BILIRUBIN,TOTAL 0.5 mg/dL (0.0-1.0); CALCIUM 9.3 mg/dL (8.4-10.2); CREATININE, serum 0.59 mg/dL (0.52-1.25); POTASSIUM 4.1 mmol/L (3.4-5.0); TOTAL PROTEIN 7.1 gm/dL (6.4-8.2)
[2018-04-22 09:45] VITALS: BP 127/84; PULSE 96; TEMP 98.1
[2018-04-26 10:05] VITALS: BP 118/73; PULSE 90; TEMP 98
[2018-04-29 09:00] VITALS: BP 112/68; PULSE 98; TEMP 98
[2018-05-03 09:17] VITALS: BP 111/88; PULSE 97; TEMP 98.7
[2018-05-03 10:02] LABS: HEMATOCRIT 40.2 % (37.0-47.0); HEMOGLOBIN 12.3 g/dl (12.5-16.0); MEAN CELL VOLUME 79 fl (80.0-100.0); MEAN CORPUSCULAR HEMOGLOBIN 24 pg (27.0-31.0); MEAN CORPUSCULAR HGB CONC 31 g/dl (33.0-37.0); MEAN PLATELET VOLUME 10.4 fl (7.4-10.4); PLATELET COUNT 267 K/mm3 (130-400); RED BLOOD COUNT 5.11 M/mm3 (4.10-5.30); REDCELL DISTRIBUTION WIDTH-CV 15.1 % (11.5-14.5)
[2018-05-03 10:06] LABS: ALBUMIN 4.4 gm/dL (3.5-5.0); BILIRUBIN,TOTAL 0.5 mg/dL (0.0-1.0); CALCIUM 9.8 mg/dL (8.4-10.2); CREATININE, serum 0.67 mg/dL (0.52-1.25); POTASSIUM 4.2 mmol/L (3.4-5.0); TOTAL PROTEIN 8.1 gm/dL (6.4-8.2)
[2018-05-06 13:27] VITALS: BP 125/79; PULSE 100; TEMP 99.2
[~2018-05-10] VITALS: Ht 167.6 cm; Wt 105.7 kg
[2018-05-10 09:17] VITALS: BP 117/75; PULSE 87; TEMP 98.1
== END | disposition home or self-care (01) ==
LOC: EUO
PROVIDERS: Family Medicine
DX: G44.51 Hemicrania continua (principal); Z45.2 Encounter for adjustment and management of vascular access device; Z95.828 Presence of other vascular implants and grafts
CPT/HCPCS: J1200; J1644; J1885; J2550; J3475; J7040

== ENCOUNTER 2018-07-19 08:00 | Outpatient (RCR) | payer OTHER ==
[2018-07-01 15:51] VITALS: BP 153/83; PULSE 102; TEMP 99.1
[2018-08-03] MEDS ORDERED: AIMOVIG AU70 MG/1 ML SQ (18:50)
== END 2018-08-03 14:00 | disposition home or self-care (01) ==
LOC: WSPT 08:00
DX: G44.51 Hemicrania continua (principal); G44.84 Primary exertional headache

== ENCOUNTER → 2018-09-16 | Outpatient (CLI) | payer OTHER ==
[~2018-09-16] VITALS: Ht 167.6 cm; Wt 104.1 kg
[~2018-09-16] MED LIST changes: +AIMOVIG AU70 MG/1 ML SQ; +BENADRYL 50M50 MG/ML IV; +DEXTROSE IV; +FLEXERIL 1010 MG/TAB PO; +MAGNE IV; +PHENERGAN25 MG/ML IV
[2018-09-16 07:48] VITALS: BP 108/70; PULSE 100
== END ==
LOC: LIGHT 07:26
DX: G47.33 Obstructive sleep apnea (adult) (pediatric) (principal); I10 Essential (primary) hypertension; E78.5 Hyperlipidemia, unspecified; E66.9 Obesity, unspecified; Z68.37 Body mass index [BMI] 37.0-37.9, adult; Z71.3 Dietary counseling and surveillance
CPT/HCPCS: G0463

== ENCOUNTER → 2018-09-24 | Outpatient (CLI) | payer OTHER | LOC: BHSO 15:02 | DX: F31.81 Bipolar II disorder (principal) | CPT/HCPCS: G0463 ==

== ENCOUNTER → 2018-10-11 | Outpatient (CLI) | payer OTHER | LOC: LIGHT 13:00 | DX: G47.33 Obstructive sleep apnea (adult) (pediatric) (principal); I10 Essential (primary) hypertension; E78.5 Hyperlipidemia, unspecified; E66.9 Obesity, unspecified; Z68.37 Body mass index [BMI] 37.0-37.9, adult; Z71.3 Dietary counseling and surveillance ==

== ENCOUNTER → 2018-10-14 | Outpatient (CLI) | payer OTHER ==
[~2018-10-14] VITALS: Ht 167.6 cm; Wt 105.2 kg
[2018-10-14 13:25] VITALS: BP 130/90; PULSE 84
== END ==
LOC: LIGHT 13:11
DX: G47.33 Obstructive sleep apnea (adult) (pediatric) (principal); I10 Essential (primary) hypertension; E78.5 Hyperlipidemia, unspecified; E66.9 Obesity, unspecified; Z68.37 Body mass index [BMI] 37.0-37.9, adult; Z71.3 Dietary counseling and surveillance
CPT/HCPCS: G0463

== ENCOUNTER 2018-11-08 15:00 | Outpatient (RCR) | payer OTHER ==
[2018-08-16 15:48] VITALS: BP 120/88; PULSE 90; TEMP 98.8
[2018-08-19 13:53] VITALS: BP 131/72; PULSE 89; TEMP 98.3
[2018-08-25 14:31] LABS: MEAN CELL VOLUME 80 fl (80.0-100.0); MEAN CORPUSCULAR HGB CONC 30 g/dl (33.0-37.0); MEAN PLATELET VOLUME 10.4 fl (7.4-10.4); PLATELET COUNT 170 K/mm3 (130-400); RED BLOOD COUNT 2.94 M/mm3 (4.10-5.30); REDCELL DISTRIBUTION WIDTH-CV 15.4 % (11.5-14.5)
[2018-08-25 14:36] LABS: HEMATOCRIT 23.5 % (37.0-47.0); HEMOGLOBIN 7.1 g/dl (12.5-16.0); MEAN CORPUSCULAR HEMOGLOBIN 24 pg (27.0-31.0)
[2018-08-25 14:37] LABS: ALBUMIN 2.9 gm/dL (3.5-5.0); BILIRUBIN,TOTAL 0.2 mg/dL (0.0-1.0); CALCIUM 6.8 mg/dL (8.4-10.2); CREATININE, serum 0.48 mg/dL (0.52-1.25); POTASSIUM 3.1 mmol/L (3.4-5.0); TOTAL PROTEIN 5.6 gm/dL (6.4-8.2)
[2018-08-25 14:51] VITALS: BP 131/70; PULSE 90; TEMP 98.7
--- NOTE | 2018-08-26 11:58 | NUR ---
Patient did not show this am for redraw of labs.This nurse called pt and she reported she overslept and was having labs redrawn at office.
[2018-08-27 13:20] VITALS: BP 126/71; PULSE 104; TEMP 98.7
[2018-08-31 17:38] VITALS: BP 117/65; PULSE 87; TEMP 98.7
[2018-09-02 14:52] VITALS: BP 125/70; PULSE 87; TEMP 97.2
[2018-09-06 16:15] VITALS: BP 123/66; PULSE 82; TEMP 97.6
[2018-09-06 17:24] LABS: HEMOGLOBIN 10.8 g/dl (12.5-16.0); MEAN CELL VOLUME 78 fl (80.0-100.0); MEAN CORPUSCULAR HEMOGLOBIN 24 pg (27.0-31.0); MEAN CORPUSCULAR HGB CONC 30 g/dl (33.0-37.0); MEAN PLATELET VOLUME 9.8 fl (7.4-10.4); PLATELET COUNT 242 K/mm3 (130-400); RED BLOOD COUNT 4.58 M/mm3 (4.10-5.30); REDCELL DISTRIBUTION WIDTH-CV 15.4 % (11.5-14.5)
[2018-09-06 17:25] LABS: HEMATOCRIT 35.8 % (37.0-47.0)
[2018-09-06 17:35] LABS: ALBUMIN 3.8 gm/dL (3.5-5.0); BILIRUBIN,TOTAL 0.3 mg/dL (0.0-1.0); CALCIUM 8.8 mg/dL (8.4-10.2); CREATININE, serum 0.69 mg/dL (0.52-1.25); POTASSIUM 4.2 mmol/L (3.4-5.0); TOTAL PROTEIN 6.7 gm/dL (6.4-8.2)
[2018-09-09 16:28] VITALS: BP 117/77; PULSE 83; TEMP 98.3
[2018-09-13 15:43] VITALS: BP 142/82; PULSE 88; TEMP 98.4
[2018-09-16 10:10] VITALS: BP 113/73; PULSE 84; TEMP 98.2
[2018-09-20 14:35] LABS: BASO # 0.1 (0.0-0.2); BASO % 0.9 % (0.0-2.0); EOS # 0.4 (0.0-0.7); EOS % 3.1 % (0-4.0); GRAN # 6.4 (1.4-6.5); GRAN % 54.9 % (42.2-75.2); HEMATOCRIT 37.8 % (37.0-47.0); HEMOGLOBIN 11.5 g/dl (12.5-16.0); LYMPH # 4.1 (1.2-3.4); LYMPH % 35.1 % (20.0-51.0); MEAN CELL VOLUME 77 fl (80.0-100.0); MEAN CORPUSCULAR HEMOGLOBIN 24 pg (27.0-31.0); MEAN CORPUSCULAR HGB CONC 30 g/dl (33.0-37.0); MEAN PLATELET VOLUME 10.2 fl (7.4-10.4); MONO # 0.7 (0.1-0.6); MONO % 5.6 % (1.7-9.3); PLATELET COUNT 284 K/mm3 (130-400); REDCELL DISTRIBUTION WIDTH-CV 15.1 % (11.5-14.5)
[2018-09-20 14:49] LABS: ALBUMIN 3.9 gm/dL (3.5-5.0); BILIRUBIN,TOTAL 0.2 mg/dL (0.0-1.0); CALCIUM 8.9 mg/dL (8.4-10.2); CREATININE, serum 0.65 mg/dL (0.52-1.25); TOTAL PROTEIN 7.1 gm/dL (6.4-8.2)
[2018-09-20 14:56] VITALS: BP 129/82; PULSE 89; TEMP 98.7
[2018-09-24 15:40] VITALS: BP 119/77; PULSE 84; TEMP 99.1
[2018-09-27 18:51] VITALS: BP 135/82; PULSE 89; TEMP 98.7
[2018-10-01 10:31] VITALS: BP 118/62; PULSE 88; TEMP 97.9
[2018-10-06 08:09] LABS: HEMATOCRIT 39.3 % (37.0-47.0); HEMOGLOBIN 12.2 g/dl (12.5-16.0); MEAN CELL VOLUME 77 fl (80.0-100.0); MEAN CORPUSCULAR HEMOGLOBIN 24 pg (27.0-31.0); MEAN CORPUSCULAR HGB CONC 31 g/dl (33.0-37.0); MEAN PLATELET VOLUME 9.5 fl (7.4-10.4); PLATELET COUNT 225 K/mm3 (130-400); RED BLOOD COUNT 5.14 M/mm3 (4.10-5.30); REDCELL DISTRIBUTION WIDTH-CV 15.4 % (11.5-14.5)
[2018-10-06 08:20] LABS: ALBUMIN 4.1 gm/dL (3.5-5.0); BILIRUBIN,TOTAL 0.4 mg/dL (0.0-1.0); CALCIUM 9.2 mg/dL (8.4-10.2); CREATININE, serum 0.72 mg/dL (0.52-1.25); TOTAL PROTEIN 7.5 gm/dL (6.4-8.2)
[2018-10-08 13:17] VITALS: BP 124/74; PULSE 86; TEMP 99.3
[2018-10-11 11:49] VITALS: BP 129/62; PULSE 81; TEMP 98.3
[2018-10-15 16:40] VITALS: BP 117/64; PULSE 90; TEMP 98
[2018-10-18 15:26] LABS: HEMATOCRIT 37.5 % (37.0-47.0); HEMOGLOBIN 11.5 g/dl (12.5-16.0); MEAN CELL VOLUME 77 fl (80.0-100.0); MEAN CORPUSCULAR HEMOGLOBIN 24 pg (27.0-31.0); MEAN CORPUSCULAR HGB CONC 31 g/dl (33.0-37.0); PLATELET COUNT 288 K/mm3 (130-400); RED BLOOD COUNT 4.89 M/mm3 (4.10-5.30); REDCELL DISTRIBUTION WIDTH-CV 15.3 % (11.5-14.5)
[2018-10-18 15:34] LABS: BILIRUBIN,TOTAL 0.4 mg/dL (0.0-1.0); CALCIUM 9.6 mg/dL (8.4-10.2); CREATININE, serum 0.76 mg/dL (0.52-1.25); POTASSIUM 3.8 mmol/L (3.4-5.0); TOTAL PROTEIN 7.1 gm/dL (6.4-8.2)
[2018-10-18 16:17] VITALS: BP 120/72; PULSE 90; TEMP 97.7
[2018-10-21 09:40] VITALS: BP 109/72; PULSE 85; TEMP 97.6
[2018-10-25 16:00] VITALS: BP 120/63; PULSE 70; TEMP 97
--- NOTE | 2018-10-25 16:45 | NUR ---
pt states pain level is at a 5/10 now, requested torodol im shot and repeat benadryl 25mg IV given. here to pick pt up at 1710
--- NOTE | 2018-10-25 19:15 | NUR ---
blood transfused, port flushed per protocol, pt waits for , discharged via w/c with qamar poe
[2018-10-28 13:44] VITALS: BP 119/56; PULSE 81; TEMP 98.7
--- NOTE | 2018-10-28 14:33 | NUR ---
Report to Audrey Phillips who will assume care at this time.
--- NOTE | 2018-10-28 14:56 | NUR ---
Deaccessed PAC and applied bandaid.
[2018-11-01 11:29] LABS: HEMOGLOBIN 11.3 g/dl (12.5-16.0); MEAN CELL VOLUME 75 fl (80.0-100.0); MEAN CORPUSCULAR HEMOGLOBIN 23 pg (27.0-31.0); MEAN CORPUSCULAR HGB CONC 31 g/dl (33.0-37.0); MEAN PLATELET VOLUME 9.5 fl (7.4-10.4); PLATELET COUNT 230 K/mm3 (130-400); REDCELL DISTRIBUTION WIDTH-CV 15.7 % (11.5-14.5)
[2018-11-01 11:31] LABS: HEMATOCRIT 36.9 % (37.0-47.0)
[2018-11-01 11:32] VITALS: BP 118/70; PULSE 89; TEMP 99.2
[2018-11-01 11:33] LABS: ALBUMIN 4.1 gm/dL (3.5-5.0); BILIRUBIN,TOTAL 0.4 mg/dL (0.0-1.0); CALCIUM 9.2 mg/dL (8.4-10.2); CREATININE, serum 0.64 mg/dL (0.52-1.25); TOTAL PROTEIN 7.3 gm/dL (6.4-8.2)
[2018-11-05 12:00] VITALS: BP 108/59; PULSE 78; TEMP 98.6
[~2018-11-08] VITALS: Ht 167.6 cm; Wt 105.6 kg
[2018-11-08 15:28] VITALS: BP 108/59; BP 118/62; PULSE 78; PULSE 82; TEMP 98; TEMP 98.6
== END 2018-11-08 16:01 | disposition home or self-care (01) ==
LOC: EUO 15:00
PROVIDERS: Family Medicine
DX: G44.51 Hemicrania continua (principal); Z45.2 Encounter for adjustment and management of vascular access device; Z95.828 Presence of other vascular implants and grafts
CPT/HCPCS: J1200; J1644; J1885; J2550; J3475; J7040

== ENCOUNTER → 2018-11-11 | Outpatient (CLI) | payer OTHER ==
[~2018-11-11] VITALS: Ht 167.6 cm; Wt 103.9 kg
[2018-11-11 14:36] VITALS: BP 124/70; PULSE 60
== END ==
LOC: LIGHT 12:56
DX: G47.33 Obstructive sleep apnea (adult) (pediatric) (principal); I10 Essential (primary) hypertension; E78.5 Hyperlipidemia, unspecified; E66.9 Obesity, unspecified; Z68.37 Body mass index [BMI] 37.0-37.9, adult; Z71.3 Dietary counseling and surveillance
CPT/HCPCS: G0463

== ENCOUNTER → 2018-11-23 | Outpatient (CLI) | payer OTHER | LOC: MC.RAD 13:57 | DX: Z12.31 Encounter for screening mammogram for malignant neoplasm of breast (principal) ==

== ENCOUNTER → 2018-11-29 | Outpatient (CLI) | payer OTHER ==
[~2018-11-29] VITALS: Ht 167.6 cm; Wt 103.9 kg
[~2018-11-29] MED LIST changes: +NATURAL IRON65 MG PO
[2018-11-29 15:09] VITALS: BP 126/70; PULSE 80
== END ==
LOC: LIGHT 14:09
DX: G47.33 Obstructive sleep apnea (adult) (pediatric) (principal); I10 Essential (primary) hypertension; E78.5 Hyperlipidemia, unspecified; E66.9 Obesity, unspecified; Z68.37 Body mass index [BMI] 37.0-37.9, adult; Z71.3 Dietary counseling and surveillance
CPT/HCPCS: G0463

== ENCOUNTER 2018-12-17 11:30 | Outpatient (RCR) | payer OTHER ==
[2018-11-11 16:21] VITALS: BP 126/62; PULSE 86; TEMP 98.5
[2018-11-18 10:23] LABS: HEMOGLOBIN 10.8 g/dl (12.5-16.0); MEAN CELL VOLUME 75 fl (80.0-100.0); MEAN CORPUSCULAR HEMOGLOBIN 23 pg (27.0-31.0); MEAN CORPUSCULAR HGB CONC 30 g/dl (33.0-37.0); MEAN PLATELET VOLUME 9.9 fl (7.4-10.4); PLATELET COUNT 287 K/mm3 (130-400); RED BLOOD COUNT 4.77 M/mm3 (4.10-5.30); REDCELL DISTRIBUTION WIDTH-CV 15.4 % (11.5-14.5)
[2018-11-18 10:28] VITALS: BP 111/66; PULSE 87; TEMP 98.2
[2018-11-18 10:33] LABS: HEMATOCRIT 35.9 % (37.0-47.0)
[2018-11-18 10:37] LABS: BILIRUBIN,TOTAL 0.5 mg/dL (0.0-1.0); CALCIUM 9.5 mg/dL (8.4-10.2); CREATININE, serum 0.58 mg/dL (0.52-1.25); POTASSIUM 4.3 mmol/L (3.4-5.0); TOTAL PROTEIN 7.2 gm/dL (6.4-8.2)
[2018-11-23 14:54] VITALS: BP 128/68; PULSE 83; TEMP 99.4
[2018-11-25 13:10] VITALS: BP 109/73; PULSE 85; TEMP 99.2
[2018-11-30 10:20] VITALS: BP 136/67; PULSE 81; TEMP 99.7
[2018-12-02 15:31] LABS: HEMOGLOBIN 10.7 g/dl (12.5-16.0); MEAN CELL VOLUME 75 fl (80.0-100.0); MEAN CORPUSCULAR HEMOGLOBIN 23 pg (27.0-31.0); MEAN CORPUSCULAR HGB CONC 30 g/dl (33.0-37.0); MEAN PLATELET VOLUME 10.4 fl (7.4-10.4); PLATELET COUNT 226 K/mm3 (130-400); REDCELL DISTRIBUTION WIDTH-CV 16.1 % (11.5-14.5)
[2018-12-02 15:36] LABS: HEMATOCRIT 35.4 % (37.0-47.0)
[2018-12-02 15:45] LABS: ALBUMIN 3.9 gm/dL (3.5-5.0); BILIRUBIN,TOTAL 0.2 mg/dL (0.0-1.0); CALCIUM 9.5 mg/dL (8.4-10.2); CREATININE, serum 0.65 mg/dL (0.52-1.25); POTASSIUM 4.3 mmol/L (3.4-5.0)
[2018-12-02 16:01] VITALS: BP 118/62; PULSE 94; TEMP 98
[2018-12-06 15:30] VITALS: BP 121/68; PULSE 97; TEMP 98.6
[2018-12-09 08:14] VITALS: BP 104/67; PULSE 82; TEMP 98.7
[2018-12-13 15:32] VITALS: BP 106/64; PULSE 90; TEMP 98.2
[~2018-12-17] VITALS: Ht 167.6 cm; Wt 104.8 kg
[2018-12-17 11:41] VITALS: BP 114/69; PULSE 84; TEMP 98.3
[2018-12-17 11:59] LABS: HEMATOCRIT 39.1 % (37.0-47.0); HEMOGLOBIN 11.8 g/dl (12.5-16.0); MEAN CELL VOLUME 76 fl (80.0-100.0); MEAN CORPUSCULAR HEMOGLOBIN 23 pg (27.0-31.0); MEAN CORPUSCULAR HGB CONC 30 g/dl (33.0-37.0); MEAN PLATELET VOLUME 10.3 fl (7.4-10.4); PLATELET COUNT 279 K/mm3 (130-400); RED BLOOD COUNT 5.14 M/mm3 (4.10-5.30); REDCELL DISTRIBUTION WIDTH-CV 18.2 % (11.5-14.5)
[2018-12-17 12:11] LABS: ALBUMIN 4.1 gm/dL (3.5-5.0); BILIRUBIN,TOTAL 0.3 mg/dL (0.0-1.0); CALCIUM 9.4 mg/dL (8.4-10.2); CREATININE, serum 0.57 mg/dL (0.52-1.25); POTASSIUM 4.2 mmol/L (3.4-5.0); TOTAL PROTEIN 7.5 gm/dL (6.4-8.2)
== END 2018-12-17 14:04 | disposition home or self-care (01) ==
LOC: EUO 11:30
PROVIDERS: Family Medicine
DX: G44.51 Hemicrania continua (principal); Z45.2 Encounter for adjustment and management of vascular access device; Z95.828 Presence of other vascular implants and grafts; Z48.00 Encounter for change or removal of nonsurgical wound dressing
CPT/HCPCS: J1200; J1644; J1885; J2550; J3475; J7040

== ENCOUNTER → 2019-01-06 | Outpatient (CLI) | payer OTHER ==
[~2019-01-06] VITALS: Ht 167.7 cm; Wt 104.8 kg
[2019-01-09 13:20] VITALS: BP 130/88; PULSE 72
== END ==
LOC: LIGHT 11:56
DX: G47.33 Obstructive sleep apnea (adult) (pediatric) (principal); I10 Essential (primary) hypertension; E78.5 Hyperlipidemia, unspecified; E66.9 Obesity, unspecified; Z71.3 Dietary counseling and surveillance

== ENCOUNTER 2019-03-26 14:07 | Emergency (ER) | payer OTHER ==
[~2019-03-26] VITALS: Ht 167.6 cm; Wt 101.0 kg
[2019-03-26 14:19] VITALS: TEMP 98.2
[2019-03-26 22:30] VITALS: BP 126/78; PULSE 76
== END 2019-03-26 23:00 | disposition home or self-care (01) ==
LOC: COL.ER 14:07
DX: G43.909 Migraine, unspecified, not intractable, without status migrainosus (principal); F32.9 Major depressive disorder, single episode, unspecified; F41.9 Anxiety disorder, unspecified; Z90.710 Acquired absence of both cervix and uterus; Z88.2 Allergy status to sulfonamides; Z90.49 Acquired absence of other specified parts of digestive tract; Z88.1 Allergy status to other antibiotic agents; Z90.89 Acquired absence of other organs
CPT/HCPCS: J1100; J1200; J1630; J1885; J2060; J2405; J7030

== ENCOUNTER → 2019-04-06 | Outpatient (CLI) | payer OTHER | LOC: COL.RAD 08:45 | DX: Z45.2 Encounter for adjustment and management of vascular access device (principal); G44.51 Hemicrania continua; G43.909 Migraine, unspecified, not intractable, without status migrainosus | CPT/HCPCS: Q9967 ==

== ENCOUNTER 2019-04-13 12:39 | Emergency (ER) | payer OTHER ==
[~2019-04-13] VITALS: Ht 167.6 cm; Wt 99.5 kg
[2019-04-13 12:50] VITALS: TEMP 99.2
[2019-04-13 13:29] LABS: BASO # 0.1 (0.0-0.2); BASO % 0.7 % (0.0-2.0); EOS # 0.1 (0.0-0.7); EOS % 1.1 % (0-4.0); GRAN # 9.3 (1.4-6.5); GRAN % 70.6 % (42.2-75.2); HEMATOCRIT 41.1 % (37.0-47.0); HEMOGLOBIN 12.6 g/dl (12.5-16.0); LYMPH # 2.9 (1.2-3.4); LYMPH % 21.6 % (20.0-51.0); MEAN CELL VOLUME 81 fl (80.0-100.0); MEAN CORPUSCULAR HEMOGLOBIN 25 pg (27.0-31.0); MEAN CORPUSCULAR HGB CONC 31 g/dl (33.0-37.0); MONO # 0.7 (0.1-0.6); MONO % 5.5 % (1.7-9.3); PLATELET COUNT 257 K/mm3 (130-400); RED BLOOD COUNT 5.05 M/mm3 (4.10-5.30); REDCELL DISTRIBUTION WIDTH-CV 16.8 % (11.5-14.5)
[2019-04-13 13:33] LABS: PROTHROMBIN TIME 12.2 SECONDS (9.7-12.8)
[2019-04-13 13:39] LABS: ALANINE AMINOTRANSFERASE 10 U/L (9-52); ALBUMIN 4.1 gm/dL (3.5-5.0); ALKALINE PHOSPHATASE 117 U/L (50-136); ANION GAP 11 mmol/L (7-16); AST,SGOT 23 U/L (15-37); BILIRUBIN,TOTAL 0.4 mg/dL (0.0-1.0); BLOOD UREA NITROGEN 10 mg/dL (7-17); CALCIUM 9.4 mg/dL (8.4-10.2); CARBON DIOXIDE 24 mmol/L (22-30); CHLORIDE 105 mmol/L (98-107); CREATININE, serum 0.66 (0.52-1.25); GLUCOSE 89 mg/dL (74-106); LIPASE 105 U/L (23-300); SODIUM 140 mmol/L (137-145); TOTAL PROTEIN 7.6 gm/dL (6.4-8.2)
[2019-04-13 13:53] LABS: TROPONIN-I < 0.012 ng/mL (0.000-0.035)
[2019-04-13] MEDS ORDERED: LAMICTAL150 MG PO (16:27)
[2019-04-13] MEDS ORDERED: ZANTAC 150MG T150 MG PO (16:28)
[2019-04-13] MEDS ORDERED: MAXALT10 MG PO (16:29)
[2019-04-13] MEDS ORDERED: PRIL40 PO (16:29)
[2019-04-13] MEDS ORDERED: ROBAXIN 75750 MG/TAB PO (16:31)
[2019-04-13 18:22] VITALS: BP 107/76; PULSE 95
== END 2019-04-13 18:23 | disposition home or self-care (01) ==
LOC: COL.ER 12:39
PROVIDERS: Emergency Medicine
DX: R07.89 Other chest pain (principal)
CPT/HCPCS: J1644; J1885; J2270; J2550; J7030; Q9967

== ENCOUNTER → 2019-05-04 | Outpatient (CLI) | payer OTHER ==
[~2019-05-04] MED LIST changes: +LAMICTAL150 MG PO; +MAXALT10 MG PO; +PRIL40 PO; +ROBAXIN 75750 MG/TAB PO
== END ==
LOC: BHSO 10:40
DX: F31.81 Bipolar II disorder (principal)
CPT/HCPCS: G0463

== ENCOUNTER 2019-08-20 06:39 | Emergency (ER) | payer OTHER ==
[~2019-08-20] VITALS: Ht 167.6 cm; Wt 90.9 kg
[2019-08-20 06:42] VITALS: TEMP 97.8
[2019-08-20 10:47] VITALS: BP 106/87; PULSE 74
== END 2019-08-20 10:52 | disposition home or self-care (01) ==
LOC: COL.ER 06:39
DX: G89.29 Other chronic pain (principal); R51 Headache; Z88.2 Allergy status to sulfonamides; Z88.8 Allergy status to other drugs, medicaments and biological substances
CPT/HCPCS: J0780; J1100; J1200; J1885; J7030

== ENCOUNTER 2019-09-12 16:13 | Emergency (ER) | payer OTHER ==
[~2019-09-12] VITALS: Ht 167.6 cm; Wt 91.8 kg
[2019-09-12 16:36] VITALS: TEMP 98.3
[2019-09-12 18:27] VITALS: BP 112/73; PULSE 73
== END 2019-09-12 18:30 | disposition home or self-care (01) ==
LOC: COL.ER 16:13
DX: G43.909 Migraine, unspecified, not intractable, without status migrainosus (principal); I10 Essential (primary) hypertension; M79.7 Fibromyalgia; Z90.89 Acquired absence of other organs
CPT/HCPCS: J0780; J1170; J1200

== ENCOUNTER 2019-09-26 15:14 | Emergency (ER) | payer OTHER ==
[~2019-09-26] VITALS: Ht 167.6 cm; Wt 90.9 kg
[2019-09-26 18:51] VITALS: BP 93/59; PULSE 69; TEMP 97.2
== END 2019-09-26 19:00 | disposition home or self-care (01) ==
LOC: COL.ER 15:14
DX: G43.909 Migraine, unspecified, not intractable, without status migrainosus (principal); Z90.710 Acquired absence of both cervix and uterus
CPT/HCPCS: J1170; J1200; J1630; J1885; J2405; J7030

== ENCOUNTER 2019-11-07 12:28 | Emergency (ER) | payer OTHER ==
[~2019-11-07] VITALS: Ht 167.6 cm; Wt 90.0 kg
[2019-11-07 12:33] VITALS: TEMP 98.1
[2019-11-07 15:24] VITALS: BP 91/52; PULSE 62
== END 2019-11-07 15:28 | disposition home or self-care (01) ==
LOC: COL.ER 12:28
DX: G89.29 Other chronic pain (principal); R51 Headache
CPT/HCPCS: J1100; J1200; J1630; J1885; J2550; J3475

== ENCOUNTER 2019-12-26 14:58 | Emergency (ER) | payer OTHER ==
[~2019-12-26] VITALS: Ht 167.6 cm; Wt 89.1 kg
[2019-12-26 16:15] LABS: BASO # 0.1 (0.0-0.2); BASO % 0.7 % (0.0-2.0); EOS # 0.1 (0.0-0.7); EOS % 0.7 % (0-4.0); GRAN # 9.2 (1.4-6.5); GRAN % 68.8 % (42.2-75.2); HEMATOCRIT 39.8 % (37.0-47.0); HEMOGLOBIN 12.4 g/dl (12.5-16.0); LYMPH # 3.4 (1.2-3.4); MEAN CELL VOLUME 77 fl (80.0-100.0); MEAN CORPUSCULAR HEMOGLOBIN 24 pg (27.0-31.0); MEAN CORPUSCULAR HGB CONC 31 g/dl (33.0-37.0); MEAN PLATELET VOLUME 11.8 fl (7.4-10.4); MONO # 0.6 (0.1-0.6); MONO % 4.4 % (1.7-9.3); PLATELET COUNT 220 K/mm3 (130-400); RED BLOOD COUNT 5.15 M/mm3 (4.10-5.30); REDCELL DISTRIBUTION WIDTH-CV 16.8 % (11.5-14.5)
[2019-12-26 16:22] LABS: INR 1.1 (0.8-3.0); PROTHROMBIN TIME 13.4 SECONDS (9.7-12.8)
[2019-12-26 16:28] LABS: ALANINE AMINOTRANSFERASE 22 U/L (9-52); ALBUMIN 4.1 gm/dL (3.5-5.0); ALKALINE PHOSPHATASE 105 U/L (50-136); ANION GAP 8 mmol/L (7-16); AST,SGOT 24 U/L (15-37); BILIRUBIN,TOTAL 0.8 mg/dL (0.0-1.0); BLOOD UREA NITROGEN 13 mg/dL (7-17); CALCIUM 9.2 mg/dL (8.4-10.2); CARBON DIOXIDE 28 mmol/L (22-30); CHLORIDE 102 mmol/L (98-107); CREATINE KINASE 31 U/L (30-135); CREATININE, serum 0.58 (0.52-1.25); GLUCOSE 84 mg/dL (74-106); POTASSIUM 4.1 mmol/L (3.4-5.0); SODIUM 138 mmol/L (137-145); TOTAL PROTEIN 7.2 gm/dL (6.4-8.2)
[2019-12-26 16:29] LABS: ACETAMINOPHEN < 10 ug/mL (10-30); ALCOHOL(ethanol),MEDICAL < 10 mg/dL; SALICYLATE < 1.0 mg/dL
[2019-12-26 17:21] LABS: COLLECTION METHOD CLEAN CATCH
[2019-12-26 17:29] LABS: MUCOUS Present /lpf; PH 5 (5-8); SQUAMOUS EPITHELIAL 0-2 /hpf; URINE APPEARANCE Clear; URINE BACTERIA Rare /hpf; URINE BILIRUBIN Negative (NEGATIVE); URINE BLOOD Negative (NEGATIVE); URINE COLOR Yellow; URINE GLUCOSE Negative (NEGATIVE); URINE KETONE Negative (NEGATIVE); URINE LEUKOCYTE ESTERASE Negative (NEGATIVE); URINE NITRATE Negative (NEGATIVE); URINE PROTEIN(semi-quant) Negative (NEGATIVE); URINE RBC 0-2 /hpf; URINE UROBILINOGEN Negative (NEGATIVE)
[2019-12-26 17:46] LABS: TRICYCLIC ANTIDEPRESS URINE NEGATIVE
[2019-12-26 18:00] VITALS: BP 96/57; PULSE 66; TEMP 98.2
== END 2019-12-26 18:25 | disposition home or self-care (01) ==
LOC: COL.ER 14:58
PROVIDERS: Emergency Medicine
DX: G31.84 Mild cognitive impairment of uncertain or unknown etiology (principal); R51 Headache
CPT/HCPCS: J1630; J2060; J2550; J7030

== ENCOUNTER → 2020-01-09 | Outpatient (CLI) | payer OTHER | LOC: MC.RAD 16:20 | DX: Z12.31 Encounter for screening mammogram for malignant neoplasm of breast (principal) ==

== ENCOUNTER 2020-03-16 10:43 | Emergency (ER) | payer OTHER ==
[~2020-03-16] VITALS: Ht 167.6 cm; Wt 88.6 kg
[2020-03-16 10:52] VITALS: BP 123/86; TEMP 97.4
[2020-03-16 13:28] VITALS: PULSE 82
== END 2020-03-16 13:29 | disposition home or self-care (01) ==
LOC: COL.ER 10:43
DX: G43.909 Migraine, unspecified, not intractable, without status migrainosus (principal); Z90.710 Acquired absence of both cervix and uterus; Z90.89 Acquired absence of other organs
CPT/HCPCS: J1170; J1630; J1885; J7030

== ENCOUNTER 2020-06-03 10:41 | Emergency (ER) | payer OTHER ==
[~2020-06-03] VITALS: Ht 167.6 cm; Wt 90.9 kg
[2020-06-03 10:48] VITALS: TEMP 97.3
[2020-06-03 13:11] VITALS: BP 105/68; PULSE 82
== END 2020-06-03 13:13 | disposition home or self-care (01) ==
LOC: COL.ER 10:41
DX: R51 Headache (principal); R11.0 Nausea; R42 Dizziness and giddiness; I10 Essential (primary) hypertension
CPT/HCPCS: J1170; J1200; J1630; J1885; J7030

== ENCOUNTER 2020-06-16 16:18 | Emergency (ER) | payer OTHER ==
[~2020-06-16] VITALS: Ht 167.6 cm; Wt 90.9 kg
[2020-06-16 16:21] VITALS: TEMP 98.4
[2020-06-16 17:20] LABS: BASO # 0.1 (0.0-0.2); BASO % 0.8 % (0.0-2.0); EOS # 0.2 (0.0-0.7); EOS % 1.4 % (0-4.0); GRAN # 7.1 (1.4-6.5); GRAN % 60.5 % (42.2-75.2); HEMATOCRIT 39.1 % (37.0-47.0); HEMOGLOBIN 12.4 g/dl (12.5-16.0); LYMPH # 3.7 (1.2-3.4); LYMPH % 31.7 % (20.0-51.0); MEAN CELL VOLUME 79 fl (80.0-100.0); MEAN CORPUSCULAR HEMOGLOBIN 25 pg (27.0-31.0); MEAN CORPUSCULAR HGB CONC 32 g/dl (33.0-37.0); MONO # 0.6 (0.1-0.6); MONO % 5.3 % (1.7-9.3); PLATELET COUNT 257 K/mm3 (130-400); RED BLOOD COUNT 4.95 M/mm3 (4.10-5.30); REDCELL DISTRIBUTION WIDTH-CV 15.8 % (11.5-14.5)
[2020-06-16 18:45] VITALS: BP 124/84; PULSE 95
== END 2020-06-16 18:47 | disposition home or self-care (01) ==
LOC: COL.ER 16:18
PROVIDERS: Family Medicine
DX: G43.909 Migraine, unspecified, not intractable, without status migrainosus (principal)
CPT/HCPCS: J0780; J1100; J1170; J1200; J1644; J1885; J7030

== ENCOUNTER 2021-02-04 10:30 | Outpatient (RCR) | payer OTHER ==
[2021-07-05] MEDS ORDERED: ABILIFY5 MG PO (17:47)
[2021-07-05] MEDS ORDERED: LEXAPRO20 MG PO (17:47)
[2021-07-05] MEDS ORDERED: KLONOPIN 1MG1 MG PO ×2 (17:48)
[2021-07-09] MEDS ORDERED: LOVENOX 100100 MG/ML SQ (09:43)
[2021-07-09] MEDS ORDERED: COUMADIN 5MG5 MG/TAB PO (09:47)
== END 2021-02-19 09:55 | disposition home or self-care (01) ==
LOC: MKS.ESL.PT 10:30
DX: M25.512 Pain in left shoulder (principal)

== ENCOUNTER → 2021-03-22 | Outpatient (CLI) | payer OTHER ==
[~2021-03-22] MED LIST changes: +COUMADIN 5MG5 MG/TAB PO; +K-DUR20 MEQ PO; +LOVENOX 100100 MG/ML SQ
== END ==
LOC: MC.RAD 03-07 16:00
DX: Z12.31 Encounter for screening mammogram for malignant neoplasm of breast (principal)

== ENCOUNTER → 2021-04-19 | Outpatient (CLI) | payer OTHER ==
--- NOTE | 2021-04-19 09:10 | NUR ---
Port accessed for procedure, no blood return obtained. Pt here to have port checked to verify it was still patent. Flushes easily.
== END ==
LOC: COL.RAD 08:43
DX: T82.594A Other mechanical complication of infusion catheter, initial encounter (principal)
CPT/HCPCS: Q9967

== ENCOUNTER 2021-06-21 17:57 | Emergency (ER) | payer OTHER ==
[~2021-06-21] VITALS: Ht 167.6 cm; Wt 97.7 kg
[~2021-06-21 17:57] MED LIST changes: -COUMADIN 5MG5 MG/TAB PO; -K-DUR20 MEQ PO; -LOVENOX 100100 MG/ML SQ
[2021-06-21 18:09] VITALS: TEMP 98.1
[2021-06-21 18:51] LABS: BASO # 0.1 (0.0-0.2); BASO % 0.7 % (0.0-2.0); EOS # 0.2 (0.0-0.7); EOS % 1.4 % (0-4.0); GRAN # 8.2 (1.4-6.5); GRAN % 69.7 % (42.2-75.2); HEMATOCRIT 37.1 % (37.0-47.0); HEMOGLOBIN 11.6 g/dl (12.5-16.0); LYMPH # 2.7 (1.2-3.4); LYMPH % 22.6 % (20.0-51.0); MEAN CELL VOLUME 83 fl (80.0-100.0); MEAN CORPUSCULAR HEMOGLOBIN 26 pg (27.0-31.0); MEAN CORPUSCULAR HGB CONC 31 g/dl (33.0-37.0); MEAN PLATELET VOLUME 10.8 fl (7.4-10.4); MONO # 0.6 (0.1-0.6); MONO % 5.2 % (1.7-9.3); PLATELET COUNT 271 K/mm3 (130-400); RED BLOOD COUNT 4.45 M/mm3 (4.10-5.30); REDCELL DISTRIBUTION WIDTH-CV 14.5 % (11.5-14.5)
[2021-06-21 19:06] LABS: C-REACTIVE PROTEIN 2.4 mg/dL (0.0-0.9)
[2021-06-21 19:27] LABS: ALANINE AMINOTRANSFERASE 15 U/L (4-34); ALBUMIN 3.1 gm/dL (3.5-5.0); ALKALINE PHOSPHATASE 85 U/L (50-136); ANION GAP 5 mmol/L (7-16); AST,SGOT 22 U/L (15-37); BILIRUBIN,TOTAL 0.5 mg/dL (0.0-1.0); BLOOD UREA NITROGEN 7 mg/dL (7-17); CALCIUM 7.7 mg/dL (8.4-10.2); CARBON DIOXIDE 26 mmol/L (22-30); CHLORIDE 106 mmol/L (98-107); CREATININE, serum 0.47 (0.52-1.25); GLUCOSE 86 mg/dL (74-106); POTASSIUM 3.1 mmol/L (3.4-5.0); SODIUM 137 mmol/L (137-145); TOTAL PROTEIN 6.1 gm/dL (6.4-8.2)
[2021-06-21 19:58] LABS: THYROID STIMULATING HORMONE 1.835 uIU/mL (0.465-4.680); TROPONIN-I < 0.012 ng/mL (0.000-0.035)
[2021-06-21 20:04] LABS: COLLECTION METHOD CLEAN CATCH
[2021-06-21 20:11] LABS: PH 6 (5-8); SQUAMOUS EPITHELIAL 0-2 /hpf; URINE APPEARANCE Clear; URINE BACTERIA None Seen /hpf; URINE BILIRUBIN Negative (NEGATIVE); URINE BLOOD Negative (NEGATIVE); URINE COLOR Straw; URINE GLUCOSE Negative (NEGATIVE); URINE KETONE Negative (NEGATIVE); URINE LEUKOCYTE ESTERASE Negative (NEGATIVE); URINE NITRATE Negative (NEGATIVE); URINE PROTEIN(semi-quant) Negative (NEGATIVE); URINE RBC 0-2 /hpf; URINE UROBILINOGEN Negative (NEGATIVE)
[2021-06-21] MEDS ORDERED: K-DUR20 MEQ PO (20:56)
[2021-06-21 21:07] VITALS: BP 128/70; PULSE 68
[2021-07-05] MEDS ORDERED: LEXAPRO20 MG PO (17:47)
[2021-07-05] MEDS ORDERED: ABILIFY5 MG PO (17:47)
[2021-07-05] MEDS ORDERED: KLONOPIN 1MG1 MG PO ×2 (17:48)
[2021-07-09] MEDS ORDERED: LOVENOX 100100 MG/ML SQ (09:43)
[2021-07-09] MEDS ORDERED: COUMADIN 5MG5 MG/TAB PO (09:47)
== END 2021-06-21 21:07 | disposition home or self-care (01) ==
LOC: COL.ER 17:57
PROVIDERS: Nurse Practitioner Primary Care
DX: E83.51 Hypocalcemia (principal); E87.6 Hypokalemia; G43.909 Migraine, unspecified, not intractable, without status migrainosus; M79.7 Fibromyalgia; F41.9 Anxiety disorder, unspecified; Z79.899 Other long term (current) drug therapy
CPT/HCPCS: J2405; J7030

== ENCOUNTER 2021-07-12 14:55 | Emergency (ER) | payer OTHER ==
[~2021-07-12] VITALS: Ht 167.6 cm; Wt 95.9 kg
[~2021-07-12 14:55] MED LIST changes: +COUMADIN 5MG5 MG/TAB PO; +K-DUR20 MEQ PO; +LOVENOX 100100 MG/ML SQ
[2021-07-12 15:02] VITALS: TEMP 99.8
[2021-07-12 15:54] LABS: BASO # 0.1 (0.0-0.2); BASO % 0.6 % (0.0-2.0); EOS # 0.2 (0.0-0.7); EOS % 1.2 % (0-4.0); GRAN # 9.3 (1.4-6.5); GRAN % 73.3 % (42.2-75.2); HEMATOCRIT 37.4 % (37.0-47.0); HEMOGLOBIN 11.8 g/dl (12.5-16.0); LYMPH # 2.4 (1.2-3.4); LYMPH % 19.1 % (20.0-51.0); MEAN CELL VOLUME 84 fl (80.0-100.0); MEAN CORPUSCULAR HEMOGLOBIN 26 pg (27.0-31.0); MEAN CORPUSCULAR HGB CONC 32 g/dl (33.0-37.0); MEAN PLATELET VOLUME 11.2 fl (7.4-10.4); MONO # 0.7 (0.1-0.6); MONO % 5.1 % (1.7-9.3); PLATELET COUNT 167 K/mm3 (130-400); RED BLOOD COUNT 4.48 M/mm3 (4.10-5.30); REDCELL DISTRIBUTION WIDTH-CV 15.3 % (11.5-14.5)
[2021-07-12 15:59] LABS: INR 2.7 (0.8-3.0); PROTHROMBIN TIME 30.7 SECONDS (9.7-12.8)
[2021-07-12 16:14] LABS: BILIRUBIN,TOTAL 0.7 mg/dL (0.0-1.0); CREATININE, serum 0.61 (0.52-1.25); POTASSIUM 3.7 mmol/L (3.4-5.0); TOTAL PROTEIN 7.2 gm/dL (6.4-8.2)
[2021-07-12 16:24] LABS: TROPONIN-I 0.027 ng/mL (0.000-0.035)
[2021-07-12 17:39] VITALS: BP 128/73; PULSE 93
== END 2021-07-12 17:42 | disposition home or self-care (01) ==
LOC: COL.ER 14:55
PROVIDERS: Personal Emergency Response Attendant
DX: R06.00 Dyspnea, unspecified (principal); R91.1 Solitary pulmonary nodule; I10 Essential (primary) hypertension
CPT/HCPCS: J7040; Q9967

== ENCOUNTER 2021-10-08 11:30 | Outpatient (RCR) | payer OTHER | END 2021-11-08 | LOC: MKS.ESL.PT | DX: M54.2 Cervicalgia (principal) ==

== ENCOUNTER 2021-12-28 18:19 | Emergency (ER) | payer BC ==
[~2021-12-28] VITALS: Ht 167.6 cm; Wt 79.5 kg
[2021-12-28 18:30] VITALS: TEMP 98.6
[2021-12-28] MEDS ORDERED: KLONOPIN 1MG1 MG PO (18:35)
[2021-12-28] MEDS ORDERED: LEXAPRO20 MG PO (18:36)
[2021-12-28 19:25] LABS: BASO # 0.1 K/mm3 (0.0-0.2); BASO % 0.8 % (0.0-2.0); EOS # 0.2 K/mm3 (0.0-0.7); EOS % 1.6 % (0.0-4.0); GRAN # 7.2 K/mm3 (1.4-6.5); GRAN % 66.2 % (42.2-75.2); HEMOGLOBIN 12.3 g/dl (12.5-16.0); LYMPH # 2.8 K/mm3 (1.2-3.4); LYMPH % 25.9 % (20.0-51.0); MEAN CELL VOLUME 80 fl (80.0-100.0); MEAN CORPUSCULAR HEMOGLOBIN 25 pg (27-31); MEAN CORPUSCULAR HGB CONC 32 g/dl (33.0-37.0); MEAN PLATELET VOLUME 11.1 fl (7.4-10.4); MONO # 0.6 K/mm3 (0.1-0.6); MONO % 5.2 % (1.7-9.3); PLATELET COUNT 242 K/mm3 (130-400); RED BLOOD COUNT 4.89 M/mm3 (4.10-5.30); REDCELL DISTRIBUTION WIDTH-CV 17.1 % (11.5-14.5)
[2021-12-28 19:43] LABS: ALBUMIN 3.3 gm/dL (3.5-5.0); BILIRUBIN,TOTAL 0.5 mg/dL (0.2-1.2); C-REACTIVE PROTEIN 2.14 mg/dL (0.00-0.50); CALCIUM 9.5 mg/dL (8.4-10.2); CREATININE, serum 0.75 mg/dL (0.57-1.11)
[2021-12-28 22:36] VITALS: BP 131/85; PULSE 77
== END 2021-12-28 22:37 | disposition home or self-care (01) ==
LOC: COL.ER 18:19
PROVIDERS: Nurse Practitioner
DX: R05.9 Cough, unspecified (principal)
CPT/HCPCS: J1170; J1200; J1885; J2550; J7030

== ENCOUNTER → 2022-02-18 | Outpatient (CLI) | payer OTHER | LOC: COL.RAD 12:20 | DX: I82.621 Acute embolism and thrombosis of deep veins of right upper extremity (principal); R91.1 Solitary pulmonary nodule | CPT/HCPCS: Q9967 ==

== ENCOUNTER 2022-03-20 18:42 | Emergency (ER) | payer OTHER ==
[~2022-03-20] VITALS: Ht 167.6 cm; Wt 81.8 kg
[2022-03-20 19:43] LABS: BASO # 0.1 K/mm3 (0.0-0.2); BASO % 0.7 % (0.0-2.0); EOS # 0.1 K/mm3 (0.0-0.7); EOS % 1.1 % (0.0-4.0); GRAN # 5.7 K/mm3 (1.4-6.5); GRAN % 60.4 % (42.2-75.2); HEMATOCRIT 40.7 % (37.0-47.0); HEMOGLOBIN 13.1 g/dl (12.5-16.0); LYMPH % 31.9 % (20.0-51.0); MEAN CELL VOLUME 80 fl (80.0-100.0); MEAN CORPUSCULAR HEMOGLOBIN 26 pg (27-31); MEAN CORPUSCULAR HGB CONC 32 g/dl (33.0-37.0); MEAN PLATELET VOLUME 10.9 fl (7.4-10.4); MONO # 0.5 K/mm3 (0.1-0.6); MONO % 5.7 % (1.7-9.3); PLATELET COUNT 232 K/mm3 (130-400); RED BLOOD COUNT 5.08 M/mm3 (4.10-5.30); REDCELL DISTRIBUTION WIDTH-CV 13.7 % (11.5-14.5)
[2022-03-20 19:57] LABS: ALBUMIN 3.6 gm/dL (3.5-5.0); BILIRUBIN,TOTAL 0.5 mg/dL (0.2-1.2); C-REACTIVE PROTEIN 0.71 mg/dL (0.00-0.50); CALCIUM 8.8 mg/dL (8.4-10.2); CREATININE, serum 0.79 mg/dL (0.57-1.11); POTASSIUM 4.2 mmol/L (3.5-4.5); TOTAL PROTEIN 7.2 gm/dL (6.2-8.1)
[2022-03-20 21:46] VITALS: BP 130/95; PULSE 75; TEMP 97.5
== END 2022-03-20 21:48 | disposition home or self-care (01) ==
LOC: COL.ER 18:42
PROVIDERS: Nurse Practitioner
DX: R10.32 Left lower quadrant pain (principal); R11.0 Nausea; Z90.49 Acquired absence of other specified parts of digestive tract; Z28.311 Partially vaccinated for COVID-19
CPT/HCPCS: J2270; J2550; J7030; Q9967

== ENCOUNTER → 2022-04-03 | Outpatient (CLI) | payer OTHER | LOC: MC.RAD 07:13 | DX: Z12.31 Encounter for screening mammogram for malignant neoplasm of breast (principal) ==

== ENCOUNTER 2024-07-30 14:30 | Emergency (ER) | payer OTHER ==
[~2024-07-30] VITALS: Ht 167.6 cm; Wt 95.5 kg
[~2024-07-30 14:30] MED LIST changes: +ELIQUIS 5MG PO
[2024-07-30 14:37] VITALS: TEMP 98.4
[2024-07-30 14:53] LABS: BASO # 0.1 K/mm3 (0.0-0.2); BASO % 0.8 % (0.0-2.0); EOS # 0.2 K/mm3 (0.0-0.7); EOS % 1.1 % (0.0-4.0); GRAN % 71.1 % (42.2-75.2); HEMATOCRIT 43.6 % (37.0-47.0); LYMPH # 3.1 K/mm3 (1.2-3.4); LYMPH % 21.8 % (20.0-51.0); MEAN CELL VOLUME 84 fl (80.0-100.0); MEAN CORPUSCULAR HEMOGLOBIN 27 pg (27-31); MEAN CORPUSCULAR HGB CONC 32 g/dl (33.0-37.0); MEAN PLATELET VOLUME 10.6 fl (7.4-10.4); MONO # 0.7 K/mm3 (0.1-0.6); MONO % 4.7 % (1.7-9.3); PLATELET COUNT 254 K/mm3 (130-400); RED BLOOD COUNT 5.18 M/mm3 (4.10-5.30); REDCELL DISTRIBUTION WIDTH-CV 14.2 % (11.5-14.5)
[2024-07-30 14:58] LABS: INR 1.1 (0.8-3.0)
[2024-07-30 15:12] LABS: ALANINE AMINOTRANSFERASE 17 U/L (0-55); ALBUMIN 3.7 g/dL (3.5-5.0); ALKALINE PHOSPHATASE 91 U/L (40-150); ANION GAP 13 mmol/L (7-16); AST,SGOT 20 U/L (5-34); BILIRUBIN,TOTAL 0.4 mg/dL (0.2-1.2); BLOOD UREA NITROGEN 21 mg/dL (10-20); CALCIUM 9.9 mg/dL (8.4-10.2); CHLORIDE 104 mEq/L (98-107); CREATININE, serum 0.92 mg/dL (0.57-1.11); GLUCOSE 101 mg/dL (70-99); POTASSIUM 3.7 mEq/L (3.5-4.5); SODIUM 140 mEq/L (136-145); TOTAL PROTEIN 7.8 g/dl (6.2-8.1)
[2024-07-30 15:19] LABS: TROPONIN-I < 0.010 ng/mL (0.00-0.033)
[2024-07-30] MEDS ORDERED: NS 100 ML IV ONE (15:21)
[2024-07-30] MEDS ORDERED: Iohexol 300 - 100 ML VIAL IV ONE (15:21)
[2024-07-30] MEDS ORDERED: fentaNYL 50 MCG/ML 2 ML VIAL IV ONE (16:15)
[2024-07-30] MEDS ORDERED: Ondansetron 4 MG/2 ML VIAL IV ONE (16:15)
[2024-07-30] MEDS ORDERED: Ketorolac 15 MG/ML VIAL IV ONE (18:30)
[2024-07-30] MEDS ORDERED: NORCO 325 MG-51 TAB PO (19:54)
[2024-07-30 20:03] VITALS: BP 117/71; PULSE 71
== END 2024-07-30 20:06 | disposition home or self-care (01) ==
LOC: COL.ER 14:30
PROVIDERS: Emergency Medicine; Family Medicine
DX: R07.89 Other chest pain (principal); G89.18 Other acute postprocedural pain
CPT/HCPCS: J1885; J2405; J3010; Q9967